=== PATIENT | female | born 1965 | race Caucasian/White ===

== ENCOUNTER 2017-04-12 18:10 | Inpatient (IN) ==
[2017-04-12] MEDS ORDERED: PHENYLEPHRINE DRIP 40 MG/250 ML PREMIX IV ONE (18:30)
[2017-04-12] MEDS ORDERED: PANTOPRAZOLE INJ 80 MG in SODIUM CHLORIDE 0.9% 100 ML IV STA (18:32)
[2017-04-12] MEDS ORDERED: SODIUM CHLORIDE 0.9% 1,000 ML IV STA (18:32)
[2017-04-12] MEDS ORDERED: ONDANSETRON 4 MG/2 ML VIAL IV STA ×2 (18:32→20:21)
[2017-04-12] MEDS: PHENYLEPHRINE DRIP 40 MG/250 ML PREMIX IV SCH (18:50)
--- NOTE | 2017-04-12 18:55 | Emergency Department Note ---
Yoko Snyder Brittany, am scribing for, and in the presence of, Jamarcus Michel MD 18:38. Anand Snyder Charles R, MD, personally performed the services described in this documentation, ascribed by Aby Babcock in my presence, and it is both accurate and complete 855 . Arrival - Arrival ED Nursing Triage Note: patient to room via ems with c/o upper and lower GI bleed. Patient states that she started throwing up blood and having diarrhea with blood in it on Tuesday. When ems arrived patient was blue around the lips. sweating, cool, and clamly. patients blood pressure is 56/35 on arrival. Mode of Arrival: Stretcher Limitations: No Limitations Source: Patient, Family - History of Present Illness Onset (ago): day(s) (Started 4 days ago) Consistency: intermittent Severity: moderate <Jamarcus Michel - Last Filed: 04/12/17 18:55> <Yovani Carrizales - Last Filed: 04/12/17 20:59> - Arrival Chief Complaint: GI Bleed/Rectal - History of Present Illness HPI Narrative: This is a 52 y/o white female, who presents to the ED by EMS for further evaluation of an upper and lower GI bleed which has been on and off for the past 5 days. She reports she has noticed the blood has been bright red in color. She states she has started to vomit blood. Per EMS, when they arrived pt was blue around the lips, clam, diaphoretic, and cool to the touch. She denies any abdominal pain Her PCP is Dr. Tracy. Pt has no other complaints/pain in the ED at this time. Pt has a PMHx of HTN, COPD, and fibromyalgia. Pt denies a surgical Hx. PT denies a family medical Hx. Pt is a former smoker but denies the use of alcohol and street drugs. (Aby Babcock) This is a 52 y/o white female, who presents to the ED by EMS for further evaluation of an upper and lower GI bleed which has been on and off for the past 5 days. She reports she has noticed the blood has been bright red in color. She states she has started to vomit blood. Per EMS, when they arrived pt was blue around the lips, clam, diaphoretic, and cool to the touch. She denies any abdominal pain Her PCP is Dr. Tracy. Pt has no other complaints/pain in the ED at this time. Pt has a PMHx of HTN, COPD, and fibromyalgia. Pt denies a surgical Hx. PT denies a family medical Hx. Pt is a former smoker but denies the use of alcohol and street drugs. (Jamarcus Michel) Allergies/Adverse Reactions: Allergies Allergy/AdvReac Type Severity Reaction Status Date / Time Penicillins Allergy Unknown/Unable Verified 04/12/17 18:25 to obtain Home Medications: Home Medications Medication Instructions Recorded Confirmed Type Aspirin 325 mg PO QAM 12/13/16 04/12/17 History Cilostazol 100 mg PO BID 12/13/16 04/12/17 History Clorazepate [Tranxene] 3.75 mg PO BID 12/13/16 04/12/17 History Furosemide Tab [Lasix Tab] 20 mg PO QAM 12/13/16 04/12/17 History Levomilnacipran HCl [Fetzima] 40 mg PO QAM 12/13/16 04/12/17 History Lisinopril 40 mg PO QAM 12/13/16 04/12/17 History Metoprolol Tartrate Tab [Lopressor 50 mg PO BID 12/13/16 04/12/17 History Tab] Pitavastatin Calcium [Livalo] 4 mg PO QPM 12/13/16 04/12/17 History Sertraline HCl 25 mg PO QAM 12/13/16 04/12/17 History Tiotropium Inhalation [Spiriva 18 mcg INH QAM 12/13/16 04/12/17 History Handihaler] traMADol TAB [Ultram] 50 mg PO BID PRN 12/13/16 04/12/17 History levETIRAcetam [Levetiracetam] 500 mg PO BID 04/12/17 04/12/17 History Review of System - Review of System 12 point system: reviewed and no additional remarkable complaints except as stated - Review of System Constitutional: Present: weakness (Generalized weak) Gastrointestinal: Present: hematemesis, hematochezia. Absent: abdominal pain <Jamarcus Michel - Last Filed: 04/12/17 18:55> Medical,Surgical,& Family Hx - Medical History Cardio: History of: Hypertension Respiratory: History of: COPD Other: History of: Miscellaneous Medical Problems (fibromyalgia) - Social History Smoking Status: Former smoker Frequency of Alcohol Use: None Type of Drug Use: None <Jamarcus Michel - Last Filed: 04/12/17 18:55> Exam - General General appearance: alert, in distress, other (Appears "Shocky" looking) - Head Head exam: Present: atraumatic, normocephalic, normal inspection - Eye Eye exam: Present: normal appearance, PERRL, EOMI. Absent: nystagmus - ENT ENT exam: Present: normal exam, mucous membranes moist - Neck Neck exam: Present: normal inspection, full ROM, trachea midline. Absent: tenderness - Chest Chest inspection: Present: normal inspection, symmetric chest wall rise. Absent : tenderness - Respiratory Respiratory exam: Present: normal lung sounds bilaterally. Absent: rales, respiratory distress, rhonchi, stridor, wheezes - Cardiovascular Cardiovascular exam: Present: normal rhythm, tachycardia, normal heart sounds. Absent: murmur, rubs, gallop, clicks, JVD - Abdominal Exam Abdominal exam: Present: soft, diminished bowel sounds. Absent: distention, tenderness, guarding, rebound, rigidity - Rectal Exam Rectal exam: Present: heme (+) stool, bloody stool - Extremities Exam Extremities exam: Present: normal capillary refill, pedal edema (Pitting edema to the BLE), other (Poor pulses noted to the RLE) - Back Exam Back exam: Present: normal inspection, full ROM. Absent: tenderness, muscle spasm, rashes - Neurological Exam Neurological exam: Present: alert, oriented X3, CN II-XII intact. Absent: motor sensory deficit - Psychiatric Psychiatric exam: Present: normal affect, normal mood. Absent: depressed, agitated, anxious, flat affect, manic - Skin Skin exam: Present: warm, dry, intact, pallor <Jamarcus Michel - Last Filed: 04/12/17 18:55> <Yovani Carrizales - Last Filed: 04/12/17 20:59> Vital Signs: Vital Signs Temperature 98.7 F 04/12/17 18:19 Pulse Rate 116 H 04/12/17 18:19 Respiratory Rate 14 04/12/17 18:19 Blood Pressure 56/35 04/12/17 18:19 O2 Sat by Pulse Oximetry 89 L 04/12/17 18:19 - Other Other exam information: Low BP Weakness (Aby Babcock) Low BP Weakness (Jamarcus Michel) Course - Consultations Time: 18:54 <Jamarcus Michel - Last Filed: 04/12/17 18:55> <Yovani Carrizales - Last Filed: 04/12/17 20:59> Course Narrative: pt became increasingly hypotensive despite fluids and pressors pt given one unit of emergency released PRBCs. just prior to administration pt became bradycardic without symptoms started blood and pt improved. pt admitted for fluids blood transfusion and further care of conditions (Yovani Carrizales) - Consultations Consultation #1: Signed out to Dr. Carrizales ER doctor assuming care of this patient all labs are pending (Jamarcsu Michel) Procedures - Central Line Placement Right Femoral Consent Obtained: verbal consent Time Out Performed: Yes Patient Placed on Monitor/Pulse Ox: Yes MD Prep: mask, gown, gloves Central Line Prep: Chlorhexidine scrub Local Anesthetic: lidocaine 1% Amount of anesthesia used (mL): 5 Central Line Lumen Inserted: triple Post Procedure: sutured in place, good blood return, all ports aspirated, flushed, capped, sterile dressing applied Patient Tolerated Procedure: well, no complications Complications: none <Jamarcus Michel - Last Filed: 04/12/17 18:55> Results - Labs CBC & BMP: 04/12/17 19:52 04/12/17 19:52 Lab Results: I have reviewed the patients labs - Diagnostic Findings Procedure: Chest x-ray: image reviewed by me (no acute), X-ray: image reviewed by me (ileus no obstruction) <Yovani Carrizales - Last Filed: 04/12/17 20:59> Critical Care Time Critical Care Time: Yes Total Critical Care Time: 60 <Jamarcus Michel - Last Filed: 04/12/17 18:55> Disposition Case discussed with: patient, patient's family <Jamarcus Michel - Last Filed: 04/12/17 18:55> Case discussed with: patient, patient's family <Yovani Carrizales - Last Filed: 04/12/17 20:59> Clinical Impression: Lower gastrointestinal hemorrhage, PVD (peripheral vascular disease), COPD ( chronic obstructive pulmonary disease), Acute blood loss anemia, Hypovolemic shock, Acute renal failure Disposition: Still a Patient
[2017-04-12] MEDS ORDERED: NOREPINEPHRINE 4 MG/4 ML VIAL IV ONE (19:23)
[2017-04-12] MEDS: NOREPINEPHRINE 8 MG in SODIUM CHLORIDE 0.9% 242 ML IV SCH ×2 (19:31→21:52)
[2017-04-12] MEDS ORDERED: SODIUM CHLORIDE 0.9% 250 ML IV PRN (19:40)
[2017-04-12 19:56] LABS: Basophils % 0.1 % (0.0-0.8); Hematocrit 23.4 VOL% (35.7-47.0); Hemoglobin 8.2 GM/DL (12.0-16.0); Immature Granulocytes % 0.3 %; Immature Granulocytes Absolute 0.02 #; Lymphocytes # 0.8 10*3/uL (1.4-4.0); Lymphocytes % 11.9 % (21.3-54.2); Mean Corpuscular Hemoglobin 32 PG (27-34); Mean Corpuscular Volume 91.1 FL (87-102); Mean Platelet Volume 11.8 FL (9.6-12.0); Monocytes # 1.1 10*3/uL (0.11-0.8); Monocytes % 15.5 % (1.7-12.7); NRBC # 0.02 10*3/uL; Neutrophils # 5.1 10*3/uL (1.4-7.4); Neutrophils % 72.2 % (38.7-73.9); Platelet Count 211 T/CUMM (130-400); Red Blood Count 2.57 MC/CUMM (3.8-5.5); Red Cell Distribution Width 14.2 % (9.3-17.3); White Blood Count 7.1 T/CUMM (4-12)
--- NOTE | 2017-04-12 20:03 | XRay Report ---
XR chest 1V portable Indication: Shortness of breath. Chest one view: Comparison 12/13/2016. The heart size and mediastinal contour are normal. The lungs and pleural spaces are clear. Bones are unremarkable. Impression: Negative chest. PROCEDURE INTERPRETED AT [facility] DEPARTMENT OF RADIOLOG[facility] Final Report Signed by: Remy Andersen M.D.
--- NOTE | 2017-04-12 20:03 | XRay Report ---
XR abdomen complete w decub Indication: Abdominal pain. Abdomen 2 views: Right groin central line is present. Scattered air-fluid levels are noted without small bowel dilatation. No free air. Stool and gas is seen in the colon. Impression: Gastroenteritis or ileus. No obstruction. PROCEDURE INTERPRETED AT [facility] DEPARTMENT OF RADIOLOGY Final Report Signed by: Remy Andersen M.D.
[2017-04-12 20:13] LABS: INR 1.2
[2017-04-12 20:20] LABS: Alanine Aminotransferase < 9 U/L (13-56); Albumin 1.8 G/DL (3.4-5.0); Alkaline Phosphatase 55 U/L (45-117); Aspartate Amino Transferase 8 U/L (0-37); Bilirubin,Total < 0.39 MG/DL (0.2-1.0); Blood Urea Nitrogen 58 MG/DL (7-18); Calcium 6.4 MG/DL (8.5-10.1); Glucose 94 MG/DL (74-106); Magnesium 1.7 MG/DL (1.8-2.4); Osmolality,Calculated 294.4 MOS/KG (273-304); Potassium 3.1 MMOL/L (3.5-5.1); Sodium 140 MMOL/L (136-145); Total Protein 3.9 G/DL (6.4-8.3); Troponin I Only < 0.015 NG/ML (0.00-0.045)
[2017-04-12] MEDS ORDERED: ONDANSETRON 4 MG/2 ML VIAL ONE (20:21)
[2017-04-12 21:10] LABS: Ammonia < 10 UMOL/L (11-32)
[2017-04-12] MEDS ORDERED: ONDANSETRON 4 MG/2 ML VIAL IV PRN (21:51)
[2017-04-12] MEDS ORDERED: traZODone 50 MG TABLET PO PRN (21:51)
[2017-04-12] MEDS ORDERED: ACETAMINOPHEN 325 MG TABLET PO PRN (21:51)
[2017-04-12] MEDS ORDERED: ALBUTEROL 2.5 MG/3 ML NEB RESP TX PRN (21:51)
[2017-04-12] MEDS ORDERED: SODIUM CHLORIDE 0.9% 1,000 ML IV SCH (22:00)
[2017-04-12] MEDS ORDERED: traMADol 50 MG TABLET PO PRN (22:15)
--- NOTE | 2017-04-12 22:31 | Hospitalist History & Physical ---
Assessment and Plan (1) GI bleed Status: Acute Assessment and plan: - ICU - hemoglobin on 12/13 was 15.2 but now 8.2 - Transfuse pRBC's as needed - requiring 2 pressors at this time - IV Protonix infusion - IV Carafate - Clear liquid diet - Stool studies ordered - Consult GI - will monitor Current Visit: Yes (2) Acute renal failure Status: Acute Assessment and plan: - Likely due to ATN, hypotension and hypovolemia - IVF - pressors - Consult nephrology - Will monitor Current Visit: Yes (3) Hypovolemic shock Status: Acute Assessment and plan: - holding BP meds - on Pressors - IVF - will monitor Current Visit: Yes (4) Hypokalemia Status: Acute Assessment and plan: - replacement in IV fluids - will monitor Current Visit: Yes (5) Hypomagnesemia Status: Acute Assessment and plan: - oral replacement - will monitor Current Visit: Yes (6) Acute posthemorrhagic anemia Status: Acute Assessment and plan: - Patient given 1 unit of emergent prbc's - Transfuse PRBC's as needed - will monitor Current Visit: Yes History of Present Illness Chief complaint: gi bleed History of present illness: Ms. Mendoza is a 52 year old female with a history of hypertension, obstructive sleep apnea (untreated), peripheral artery disease, CVA, and COPD that presented to the ER with GI bleed for 4-5 days. Patient reports having flu- like symptoms with body aches and subjective fever. She also reports having nausea and vomiting, diarrhea, abdominal pain. Patient reports vomitus is blood in stools are dark and bright red at times. Abdominal pain described as diffuse, crampy and severe. Patient reports shortness of breat but denies any other symptoms. Patient reports the only sick contact has been a daughter and she has flulike symptoms with nausea, vomiting, and diarrhea as well. Patient reports she not come to the doctor sooner because she thought she would get well. When EMS arrived to pick patient up she was found to be cool, clammy, and blue around the lips. In the ER, patient was found to have severe hypotension and she was also Hemoccult positive. Patient was given emergent packed red blood cells in the ER and was placed on 2 pressors. Patient will be admitted to the ICU in the care of the hospitalist service. Of note, Dr. Tracy is her PCP. Patient has an endovascular procedures scheduled for her PAD by Dr. Diehl on 04/18/2017. Home Medications Medication Instructions Recorded Confirmed Type Aspirin 325 mg PO QAM 12/13/16 04/12/17 History Cilostazol 100 mg PO BID 12/13/16 04/12/17 History Clorazepate [Tranxene] 3.75 mg PO BID 12/13/16 04/12/17 History Furosemide Tab [Lasix Tab] 20 mg PO QAM 12/13/16 04/12/17 History Levomilnacipran HCl [Fetzima] 40 mg PO QAM 12/13/16 04/12/17 History Lisinopril 40 mg PO QAM 12/13/16 04/12/17 History Metoprolol Tartrate Tab [Lopressor 50 mg PO BID 12/13/16 04/12/17 History Tab] Pitavastatin Calcium [Livalo] 4 mg PO QPM 12/13/16 04/12/17 History Sertraline HCl 25 mg PO QAM 12/13/16 04/12/17 History Tiotropium Inhalation [Spiriva 18 mcg INH QAM 12/13/16 04/12/17 History Handihaler] traMADol TAB [Ultram] 50 mg PO BID PRN 12/13/16 04/12/17 History levETIRAcetam [Levetiracetam] 500 mg PO BID 04/12/17 04/12/17 History Allergies Allergy/AdvReac Type Severity Reaction Status Date / Time Penicillins Allergy Unknown/Unable Verified 04/12/17 18:25 to obtain Medical,Surgical,& Family Hx - Medical History Cardio: History of: Hypertension Psychological: History of: Depression Neurology: History of: Brain Aneurysm (found in november 2016), Cerebrovascular Accident (november 2016) Rheumatology: History of;: Fibromyalgia Respiratory: History of: COPD Other: History of: Miscellaneous Medical Problems (fibromyalgia) - Surgical History Cardiac Surgeries: Sugical HX of: Cardiac Catheterization Neurologic Surgeries: Surgical HX of: Brain Aneurysm (found in november 2016) Patient denies: Neurologic Surgery Reproductive Surgeries: Surgical HX of;: Gynecologic Surgery, Hysterectomy - Social History Smoking Status: Former smoker Frequency of Alcohol Use: None Type of Drug Use: None Review of systems: 12 point review of systems is negative unless stated in the HPI Exam - Constitutional Vitals: Period Temp Pulse Resp BP Sys/Katz Pulse Ox Last 24 Hr 97.9 F-98.7 F 99-116 14-20 56-98/35-82 89-95 General appearance: morbidly obese - Head Head exam: Present: normal inspection - Eye Eye exam: Present: EOMI - ENT ENT exam: Present: other (dry mucous membranes) - Respiratory Respiratory exam: Present: clear to auscultation bilaterally - Cardiovascular Cardiovascular exam: Present: regular rate and rhythm, systolic murmur - GI/Abdominal GI/Abdominal exam: Present: hypoactive bowel sounds, tenderness (epigastric). Absent: distended - Extremities Exam Extremities exam: Present: normal inspection, other (decreased peripheral pulses ). Absent: edema - Neurological Exam Neurological exam: Present: alert, oriented X3 - Psychiatric Psychiatric exam: Present: normal affect - Skin Skin exam: Present: normal color, warm, dry Results - Labs CBC & BMP: 04/12/17 19:52 04/12/17 19:52 Quality Measures - VTE Contraindication to Pharmacological VTE Prophylaxis: Active Bleeding
[2017-04-12] MEDS: levETIRAcetam 500 MG TABLET PO SCH (22:35)
[2017-04-12 22:42] LABS: Basophils % 0.5 % (0.0-0.8); Hematocrit 33.3 VOL% (35.7-47.0); Hemoglobin 11.6 GM/DL (12.0-16.0); Immature Granulocytes % 0.5 %; Immature Granulocytes Absolute 0.04 #; Lymphocytes # 0.9 10*3/uL (1.4-4.0); Mean Corpuscular HGB Conc 34.8 GM/DL (32-36); Mean Corpuscular Hemoglobin 31 PG (27-34); Mean Corpuscular Volume 89.5 FL (87-102); Monocytes # 0.9 10*3/uL (0.11-0.8); NRBC # 0.02 10*3/uL; Neutrophils # 6.6 10*3/uL (1.4-7.4); Platelet Count 234 T/CUMM (130-400); Red Blood Count 3.72 MC/CUMM (3.8-5.5); Red Cell Distribution Width 14.7 % (9.3-17.3); White Blood Count 8.6 T/CUMM (4-12)
[2017-04-12] MEDS ORDERED: PANTOPRAZOLE INJ 200 MG in SODIUM CHLORIDE 0.9% 250 ML IV SCH (23:00)
[2017-04-12] MEDS: SODIUM CHLOR 0.9% KCL 40 MEQ 40 MEQ/1,000 ML BAG IV SCH (23:05)
[2017-04-12] MEDS: MAGNESIUM OXIDE 400 MG TABLET PO SCH (23:05)
[2017-04-12 23:59] LABS: Hepatitis A Ab IgM Quant 0.06 Index; Hepatitis A Ab IgM Result Negative (Negative); Hepatitis B Core IgM Quant 0.13 Index; Hepatitis B Core IgM Result Negative (Negative); Hepatitis B Surface Ag Quant 0.31 Index; Hepatitis B Surface Ag Result Negative (Negative); Hepatitis C Virus Ab Quant 0.02 Index; Hepatitis C Virus Ab Result Negative (Negative)
[2017-04-13] MEDS: PHENYLEPHRINE DRIP 40 MG/250 ML PREMIX IV SCH ×9 (02:37→20:24)
[2017-04-13 04:36] LABS: Basophils % 0.3 % (0.0-0.8); Hematocrit 35.2 VOL% (35.7-47.0); Immature Granulocytes % 0.6 %; Immature Granulocytes Absolute 0.06 #; Lymphocytes # 2.2 10*3/uL (1.4-4.0); Lymphocytes % 20.4 % (21.3-54.2); Mean Corpuscular HGB Conc 34.1 GM/DL (32-36); Mean Corpuscular Hemoglobin 31 PG (27-34); Mean Corpuscular Volume 90.5 FL (87-102); Mean Platelet Volume 11.8 FL (9.6-12.0); Monocytes # 1.5 10*3/uL (0.11-0.8); Monocytes % 13.8 % (1.7-12.7); NRBC # 0.05 10*3/uL; Neutrophils # 6.9 10*3/uL (1.4-7.4); Neutrophils % 64.9 % (38.7-73.9); Platelet Count 301 T/CUMM (130-400); Red Blood Count 3.89 MC/CUMM (3.8-5.5); Red Cell Distribution Width 15.7 % (9.3-17.3); White Blood Count 10.6 T/CUMM (4-12)
[2017-04-13 05:09] LABS: Band Neutrophils 8 % (0-10); Burr Cells Slight; Giant Platelets Few; Hypochromasia Slight; Lymphocytes 25 % (20-55); Ovalocytes Slight; Platelet Estimate Adequate; Segmented Neutrophils 50 % (50-85); Total Cells Counted 100
[2017-04-13 05:10] LABS: Albumin 2.3 G/DL (3.4-5.0); Bilirubin,Total 0.9 MG/DL (0.2-1.0); Calcium 7.8 MG/DL (8.5-10.1); Magnesium 2.2 MG/DL (1.8-2.4); Osmolality,Calculated 292.8 MOS/KG (273-304); Potassium 4.6 MMOL/L (3.5-5.1); Total Protein 5.1 G/DL (6.4-8.3)
[2017-04-13] MEDS: SODIUM CHLOR 0.9% KCL 40 MEQ 40 MEQ/1,000 ML BAG IV SCH (05:35)
--- NOTE | 2017-04-13 08:11 | EKG Report ---
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
[2017-04-13] MEDS ORDERED: SODIUM CHLORIDE 0.9% 1,000 ML IV ONE (08:59)
[2017-04-13] MEDS: SERTRALINE 25 MG TABLET PO SCH (09:10)
[2017-04-13] MEDS: CLORAZEPATE 7.5 MG TABLET PO SCH ×2 (09:11→20:21)
[2017-04-13] MEDS: MAGNESIUM OXIDE 400 MG TABLET PO SCH (09:11)
[2017-04-13] MEDS: levETIRAcetam 500 MG TABLET PO SCH ×2 (09:12→20:21)
[2017-04-13] MEDS: SUCRALFATE 1 GM/10 ML UDCUP PO SCH ×4 (09:12→20:21)
[2017-04-13] MEDS: SODIUM BICARB INJ 100 MEQ in DEXTROSE 5% 1,000 ML IV SCH ×2 (10:13→17:29)
[2017-04-13] MEDS: metroNIDAZOLE INJ 500 MG in PREMIX 1 EACH IV SCH ×2 (10:17→17:23)
--- NOTE | 2017-04-13 11:20 | Hospitalist Progress Note ---
Hospitalist: Subjective Interval history: Mrs Mendoza presented last night after 4-5 days of vomiting, bloody diarrhea no hematemesis. She had outpatient arteriogram last week. No history of renal failure. She reports abdominal pain, but no more diarrhea. KUB showed ileus v gastroenteritis. A/P: 1)acute new renal failure- probably due to IV dye used at arteriogram and her ACEI use. Hold MARYAN, hydrate, renal to see. Change IVF to D5W with bicarb after bolus. 2)shock- initially it seemed hypovolemic, but now she has been rehydrated and remains tachycardic and hypotensive. Get Bcx, Ucx, stool cultures. Begin levaquin and flagyl- may have diverticulitis on exam and this would fit with pain, fever, and bloody diarrhea. check lactic acid. Repeat 1L NS bolus. 3)PVD- I let Dr Gonzales know she is here. 4)possible diverticulitis/bloody diarrhea- it would be nice to have CT abdomen but Imp not sure how helpful it would be without contrast. GI to see. 5)hypokalemia and hypomagnesemia- replaced. Exam - Constitutional Vitals: Period Temp Pulse Resp BP Sys/Katz Pulse Ox Last 24 Hr 96.9 F-98.7 F 75-116 12-30 56-118/32-82 89-100 General appearance: no acute distress, over weight - Eye Eye exam: Present: EOMI. Absent: scleral icterus - Respiratory Respiratory exam: Present: clear to auscultation bilaterally - Cardiovascular Cardiovascular exam: Present: regular rate and rhythm - GI/Abdominal GI/Abdominal exam: Present: normal bowel sounds, tenderness (more tender in LLQ no rebound, or guarding), soft - Extremities Exam Extremities exam: Absent: edema - Neurological Exam Neurological exam: Present: alert, oriented X3 - Psychiatric Psychiatric exam: Present: normal mood. Absent: normal affect (sleeps with eyes open) - Skin Skin exam: Present: warm, dry Results - Labs CBC & BMP: 04/13/17 03:43 04/13/17 03:43 Lab Results: I have reviewed the past 24 hour labs Quality Measures - VTE Contraindication to Pharmacological VTE Prophylaxis: Active Bleeding
--- NOTE | 2017-04-13 11:25 | Vascular Surgery Consult Note ---
History of Present Illness Chief complaint: GI Hemorrhage History of present illness: Ms. 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 There is also been found a small 3 mm cranial aneurysm and she has seen her neurosurgeon recently and does not feel that this would contraindicate treatment of her peripheral vascular disease. She has been scheduled for a right femoral-popliteal bypass next week but has now been admitted with acute GI hemorrhage hypotension and acute renal failure. Her CT angiogram was 8 1 and I would be surprised if it in fact cause the acute renal failure. At this point I will see her while here in the hospital but would anticipate we will delay surgery until this illness has fully resolved Home Medications Medication Instructions Recorded Confirmed Type Aspirin 325 mg PO QAM 12/13/16 04/12/17 History Cilostazol 100 mg PO BID 12/13/16 04/12/17 History Clorazepate [Tranxene] 3.75 mg PO BID 12/13/16 04/12/17 History Furosemide Tab [Lasix Tab] 20 mg PO QAM 12/13/16 04/12/17 History Levomilnacipran HCl [Fetzima] 40 mg PO QAM 12/13/16 04/12/17 History Lisinopril 40 mg PO QAM 12/13/16 04/12/17 History Metoprolol Tartrate Tab [Lopressor 50 mg PO BID 12/13/16 04/12/17 History Tab] Pitavastatin Calcium [Livalo] 4 mg PO QPM 12/13/16 04/12/17 History Sertraline HCl 25 mg PO QAM 12/13/16 04/12/17 History Tiotropium Inhalation [Spiriva 18 mcg INH QAM 12/13/16 04/12/17 History Handihaler] traMADol TAB [Ultram] 50 mg PO BID PRN 12/13/16 04/12/17 History levETIRAcetam [Levetiracetam] 500 mg PO BID 04/12/17 04/12/17 History Allergies Allergy/AdvReac Type Severity Reaction Status Date / Time Penicillins Allergy Unknown/Unable Verified 04/12/17 18:25 to obtain Medical,Surgical,& Family Hx - Medical History Cardio: History of: Hypertension Psychological: History of: Depression Neurology: History of: Brain Aneurysm (found in november 2016), Cerebrovascular Accident (november 2016) Rheumatology: History of;: Fibromyalgia Respiratory: History of: COPD Other: History of: Miscellaneous Medical Problems (fibromyalgia) - Surgical History Cardiac Surgeries: Sugical HX of: Cardiac Catheterization Neurologic Surgeries: Surgical HX of: Brain Aneurysm (found in november 2016) Patient denies: Neurologic Surgery Reproductive Surgeries: Surgical HX of;: Gynecologic Surgery, Hysterectomy - Social History Smoking Status: Former smoker Frequency of Alcohol Use: None Type of Drug Use: None Exam - Constitutional Vitals: Period Temp Pulse Resp BP Sys/Katz Pulse Ox Last 24 Hr 96.9 F-98.7 F 75-116 12-30 56-118/32-82 89-100 Quality Measures - VTE Contraindication to Pharmacological VTE Prophylaxis: Active Bleeding Results - Labs CBC & BMP: 04/13/17 03:43 04/13/17 03:43
--- NOTE | 2017-04-13 11:27 | Gastrointestinal Consult Note ---
Assessment and Plan (1) GI bleed Status: Acute Assessment and plan: 04/13-onset of rectal bleeding with diarrhea stools times several days with lower abdominal cramping. On Pletal and aspirin therapy. Has been transfused 2 units packed red blood cells. Unable to locate endoscopy records. Monitor H& H. Clear liquid diet. Plan an addendum to followed by Dr. Andrade. Current Visit: Yes History of Present Illness Chief complaint: Rectal bleed History of present illness: Ms. Mendoza is a 52 year old female who was admitted to the hospital last night with reports of SOB and rectal bleeding. Patient has a prior history of hypertension, PAD, CVA and COPD. Pt states that she was in her usual state of health until approximately 5 days ago when she had a sudden onset of nausea, vomiting and diarrhea. She states that she had multiple diarrhea stools from the beginning as well as multiple episodes of nausea and vomiting. She also reports some lower abdominal pain and cramping that preceded defecation however was relieved with the bowel movement. She denies any coffee ground or hemetemesis with the vomiting episodes. She states that approximately two days ago she began to notice some bright red blood in her diarrhea stools. She states that this was mixed in with dark red clots at times. Patient states that she has never had a GI bleed like this before. She had had an increase in shortness of breath at its well and decided to come to the emergency room yesterday for further evaluation. Patient did state that she has been in contact with her daughter who has recently had flulike symptoms with similar presentation of nausea vomiting diarrhea. She denies any fever or chills. Upon arrival to the emergency room, patient was found to be hypotensive and was placed on pressure support as well as transfused at that time. She was initially found to have an H&H of 04/13 however following 2 units of packed red blood cells her counts improved to . She was also placed on ynes-as well as Levophed infusions which are continuing today. Patient denies taking any NSAIDs or however noted to be taking Pletal as well as a daily aspirin. She denies any recent weight loss, increased GERD, dyspepsia, or dysphagia. She has had endoscopy in the past but cannot recall the findings. Dr. Gonzales has consulted with patient regarding a previously scheduled right fem-pop bypass next week however this is noted to be postponed at this time. There is also mention of a small cranial aneurysm which was found following a CVA in November of this year in which patient is followed by a neurosurgeon for. She is followed routinely by Dr. Levin is her PCP. Patient states that she has had endoscopy done at our facility in the past, which she states was greater than 10 years ago , however unable to locate these files at this time.. Home Medications Medication Instructions Recorded Confirmed Type Aspirin 325 mg PO QAM 12/13/16 04/12/17 History Cilostazol 100 mg PO BID 12/13/16 04/12/17 History Clorazepate [Tranxene] 3.75 mg PO BID 12/13/16 04/12/17 History Furosemide Tab [Lasix Tab] 20 mg PO QAM 12/13/16 04/12/17 History Levomilnacipran HCl [Fetzima] 40 mg PO QAM 12/13/16 04/12/17 History Lisinopril 40 mg PO QAM 12/13/16 04/12/17 History Metoprolol Tartrate Tab [Lopressor 50 mg PO BID 12/13/16 04/12/17 History Tab] Pitavastatin Calcium [Livalo] 4 mg PO QPM 12/13/16 04/12/17 History Sertraline HCl 25 mg PO QAM 12/13/16 04/12/17 History Tiotropium Inhalation [Spiriva 18 mcg INH QAM 12/13/16 04/12/17 History Handihaler] traMADol TAB [Ultram] 50 mg PO BID PRN 12/13/16 04/12/17 History levETIRAcetam [Levetiracetam] 500 mg PO BID 04/12/17 04/12/17 History Allergies Allergy/AdvReac Type Severity Reaction Status Date / Time Penicillins Allergy Unknown/Unable Verified 04/12/17 18:25 to obtain Medical,Surgical,& Family Hx - Medical History Cardio: History of: Hypertension Psychological: History of: Depression Neurology: History of: Brain Aneurysm (found in november 2016), Cerebrovascular Accident (november 2016) Rheumatology: History of;: Fibromyalgia Respiratory: History of: COPD Other: History of: Miscellaneous Medical Problems (fibromyalgia) - Surgical History Cardiac Surgeries: Sugical HX of: Cardiac Catheterization Neurologic Surgeries: Surgical HX of: Brain Aneurysm (found in november 2016) Patient denies: Neurologic Surgery Reproductive Surgeries: Surgical HX of;: Gynecologic Surgery, Hysterectomy - Social History Smoking Status: Former smoker Frequency of Alcohol Use: None Type of Drug Use: None 12 point system: reviewed and no additional remarkable complaints except as stated - Constitutional Constitutional: Present: as per HPI - EENT Eyes: Present: as per HPI Ears: Present: as per HPI Nose, mouth and throat: Present: as per HPI - Cardiovascular Cardiovascular: Present: as per HPI - Respiratory Respiratory: Present: as per HPI - Gastrointestinal Gastrointestinal: Present: as per HPI, abdominal pain, diarrhea, hematochezia, nausea, vomiting - Genitourinary Genitourinary: Present: as per HPI - Musculoskeletal Musculoskeletal: Present: as per HPI - Neurological Neurological: Present: as per HPI - Psychiatric Psychiatric: Present: as per HPI - Endocrine Endocrine: Present: as per HPI - Hematologic/Lymphatic Hematologic/Lymphatic: Present: as per HPI Exam - Constitutional Vitals: Period Temp Pulse Resp BP Sys/Katz Pulse Ox Last 24 Hr 96.9 F-98.7 F 75-116 12-30 56-118/32-82 89-100 General appearance: normal weight, no acute distress - Head Head exam: Present: normal inspection, normocephalic - Eye Eye exam: Present: other (lids and conjunctiva unremarkable). Absent: scleral icterus - ENT ENT exam: Present: normal exam, normal oropharynx - Neck Neck exam: Present: normal inspection - Respiratory Respiratory exam: Present: clear to auscultation bilaterally. Absent: rales, rhonchi, wheezes - Cardiovascular Cardiovascular exam: Present: regular rate and rhythm. Absent: diastolic murmur , JVD, systolic murmur - GI/Abdominal GI/Abdominal exam: Present: normal bowel sounds, soft. Absent: ascites, distended, mass, organomegaly, tenderness - Extremities Exam Extremities exam: Present: normal inspection, full ROM - Back Exam Back exam: Present: normal inspection - Neurological Exam Neurological exam: Present: alert, oriented X3 - Psychiatric Psychiatric exam: Present: normal affect, normal mood - Skin Skin exam: Present: normal color, warm, dry Results - Labs CBC & BMP: 04/13/17 03:43 04/13/17 03:43 Lab Results: I have reviewed the past 24 hour labs Quality Measures - VTE Contraindication to Pharmacological VTE Prophylaxis: Active Bleeding
[2017-04-13] MEDS: LEVOFLOXACIN INJ 250 MG in PREMIX 1 EACH IV SCH (11:50)
--- NOTE | 2017-04-13 15:38 | Nephrology Consult Note ---
History of Present Illness Chief complaint: Acute renal failure History of present illness: Ms. Mendoza is a 52 year old female with a history of CVA, hypertension and COPD, fibromyalgia and anemia presented with a GI bleed. Serum creatinine is trended up to 8.2. The patient has been voiding. Nephrology is been consulted for renal issues. During the workup patient did get exposure to contrast dye for her GI bleed. At present she has been hypotensive and has been on multiple pressor medications. No shortness of breath she does states she aches a lot in her stomach. No fevers or chills. His hematocrit is stable at 35.2. Home Medications Medication Instructions Recorded Confirmed Type Aspirin 325 mg PO QAM 12/13/16 04/12/17 History Cilostazol 100 mg PO BID 12/13/16 04/12/17 History Clorazepate [Tranxene] 3.75 mg PO BID 12/13/16 04/12/17 History Furosemide Tab [Lasix Tab] 20 mg PO QAM 12/13/16 04/12/17 History Levomilnacipran HCl [Fetzima] 40 mg PO QAM 12/13/16 04/12/17 History Lisinopril 40 mg PO QAM 12/13/16 04/12/17 History Metoprolol Tartrate Tab [Lopressor 50 mg PO BID 12/13/16 04/12/17 History Tab] Pitavastatin Calcium [Livalo] 4 mg PO QPM 12/13/16 04/12/17 History Sertraline HCl 25 mg PO QAM 12/13/16 04/12/17 History Tiotropium Inhalation [Spiriva 18 mcg INH QAM 12/13/16 04/12/17 History Handihaler] traMADol TAB [Ultram] 50 mg PO BID PRN 12/13/16 04/12/17 History levETIRAcetam [Levetiracetam] 500 mg PO BID 04/12/17 04/12/17 History Allergies Allergy/AdvReac Type Severity Reaction Status Date / Time Penicillins Allergy Unknown/Unable Verified 04/12/17 18:25 to obtain Medical,Surgical,& Family Hx - Medical History Cardio: History of: Hypertension Psychological: History of: Depression Neurology: History of: Brain Aneurysm (found in november 2016), Cerebrovascular Accident (november 2016) Rheumatology: History of;: Fibromyalgia Respiratory: History of: COPD Other: History of: Miscellaneous Medical Problems (fibromyalgia) - Surgical History Cardiac Surgeries: Sugical HX of: Cardiac Catheterization Neurologic Surgeries: Surgical HX of: Brain Aneurysm (found in november 2016) Patient denies: Neurologic Surgery Reproductive Surgeries: Surgical HX of;: Gynecologic Surgery, Hysterectomy - Social History Smoking Status: Former smoker Frequency of Alcohol Use: None Type of Drug Use: None Exam - Vital Signs Vital signs: Period Temp Pulse Resp BP Sys/Katz Pulse Ox Last 24 Hr 96.9 F-98.7 F 74-122 12-30 56-123/32-82 89-100 - General Appearance General appearance: well-developed, well-nourished EENT: ATNC Neck: supple Respiratory: clear Cardiology: regular rate, regular rhythm Gastrointestinal: normoactive bowel sounds, no tenderness Integumentary: no rash Neurologic: alert and oriented x3, CN 3-12 intact Musculoskeletal: no clubbing Psychiatric: mood/affect appropriate Results - Labs CBC & BMP: 04/13/17 03:43 04/13/17 03:43 Assessment and Plan (1) Acute renal failure Status: Acute Assessment and plan: More likely ATN due to hypotension. Moreover patient has had exposure to contrast. Continue with IV fluids. Daily BMP. Current Visit: Yes Qualifiers: Acute renal failure type: with acute tubular necrosis Qualified Code(s): N17.0 - Acute kidney failure with tubular necrosis (2) Lower gastrointestinal hemorrhage Status: Acute Assessment and plan: Hemodynamics are noted. Currently patient is on pressor medications. Current Visit: Yes (3) Peripheral vascular disease Status: Chronic Current Visit: Yes (4) GI bleed Status: Acute Current Visit: Yes
[2017-04-13] MEDS: NOREPINEPHRINE 16 MG in SODIUM CHLORIDE 0.9% 234 ML IV SCH (20:23)
[2017-04-13] MEDS: PHENYLEPHRINE INJ 80 MG in SODIUM CHLORIDE 0.9% 242 ML IV SCH (21:40)
[2017-04-14] MEDS: SODIUM BICARB INJ 100 MEQ in DEXTROSE 5% 1,000 ML IV SCH ×2 (01:06→08:51)
[2017-04-14] MEDS: metroNIDAZOLE INJ 500 MG in PREMIX 1 EACH IV SCH ×3 (02:20→18:10)
[2017-04-14] MEDS: PHENYLEPHRINE INJ 80 MG in SODIUM CHLORIDE 0.9% 242 ML IV SCH ×4 (04:03→22:20)
[2017-04-14 04:44] LABS: Basophils % 0.4 % (0.0-0.8); Eosinophils % 0.1 % (0.00-10.9); Hematocrit 32.9 VOL% (35.7-47.0); Hemoglobin 11.2 GM/DL (12.0-16.0); Immature Granulocytes % 2.6 %; Immature Granulocytes Absolute 0.18 #; Lymphocytes # 1.2 10*3/uL (1.4-4.0); Lymphocytes % 17.1 % (21.3-54.2); Mean Corpuscular Hemoglobin 31 PG (27-34); Mean Corpuscular Volume 90.1 FL (87-102); Mean Platelet Volume 11.5 FL (9.6-12.0); Monocytes # 0.9 10*3/uL (0.11-0.8); Monocytes % 12.6 % (1.7-12.7); NRBC # 0.09 10*3/uL; Neutrophils # 4.6 10*3/uL (1.4-7.4); Neutrophils % 67.2 % (38.7-73.9); Platelet Count 258 T/CUMM (130-400); Red Blood Count 3.65 MC/CUMM (3.8-5.5); Red Cell Distribution Width 16.4 % (9.3-17.3); White Blood Count 6.9 T/CUMM (4-12)
[2017-04-14 05:03] LABS: Burr Cells Slight; Giant Platelets Few; Hypochromasia Slight; Ovalocytes Slight; Platelet Estimate Adequate
[2017-04-14 05:29] LABS: Albumin 1.9 G/DL (3.4-5.0); Bilirubin,Total 0.7 MG/DL (0.2-1.0); Calcium 6.5 MG/DL (8.5-10.1); Osmolality,Calculated 295.1 MOS/KG (273-304); Potassium 3.9 MMOL/L (3.5-5.1); Total Protein 4.6 G/DL (6.4-8.3)
[2017-04-14] MEDS: SUCRALFATE 1 GM/10 ML UDCUP PO SCH ×4 (06:30→21:04)
[2017-04-14] MEDS: PANTOPRAZOLE 40 MG VIAL IV SCH (08:51)
--- NOTE | 2017-04-14 08:51 | Event Note ---
Ms. Mendoza is doing better today blood counts stabilized vital signs are stable and his creatinine is down to 3.3. Again I am planning to consider the right femoral-popliteal bypass after this illness resolved which could easily be 1-2 months. Do note that she did not have any contrast during this admission her last contrast with CT angiogram of the aorta from March 22
[2017-04-14] MEDS: SERTRALINE 25 MG TABLET PO SCH (08:52)
[2017-04-14] MEDS: levETIRAcetam 500 MG TABLET PO SCH ×2 (08:53→21:04)
[2017-04-14] MEDS: CLORAZEPATE 7.5 MG TABLET PO SCH ×2 (08:53→21:04)
--- NOTE | 2017-04-14 10:39 | Gastrointestinal Progress Note ---
Assessment and Plan (1) GI bleed Status: Acute Assessment and plan: 04/14-no further reports of bleeding at this time. H&H is stable. Continue to monitor at present time. Continuing to require Hao-Synephrine. Plan an addendum to followed by Dr. Andrade. 04/13-onset of rectal bleeding with diarrhea stools times several days with lower abdominal cramping. On Pletal and aspirin therapy. Has been transfused 2 units packed red blood cells. Unable to locate endoscopy records. Monitor H& H. Clear liquid diet. Plan an addendum to followed by Dr. Andrade. Current Visit: Yes Gastroenterology - PN: Subj Interval history: CC: GI bleed Patient is seen, awake alert, family at bedside. States she rested well overnight. She denies any overt bleeding at this time however states she has not had a bowel movement today. She denies any abdominal pain but does have the urge to defecate now. Denies any nausea or vomiting. Abdomen is soft, nontender. She continues with hao-pressor support. H&H is stable . Stools negative for CDF and no WBCs seen. ROS: Denies shortness of breath or chest pain Exam (Progress Note) - Constitutional Vitals: Period Temp Pulse Resp BP Sys/Katz Pulse Ox Last 24 Hr 97.8 F-98.7 F 71-122 9-26 66-160/40-130 90-98 General appearance: normal weight, no acute distress - Head Head exam: Present: normal inspection, normocephalic - Eye Eye exam: Present: other (Lids and conjunctive are unremarkable). Absent: scleral icterus - ENT ENT exam: Present: normal exam, normal oropharynx - Neck Neck exam: Present: normal inspection - Respiratory Respiratory exam: Present: clear to auscultation bilaterally. Absent: rales, rhonchi, wheezes - Cardiovascular Cardiovascular exam: Present: regular rate and rhythm. Absent: diastolic murmur , JVD, systolic murmur - GI/Abdominal GI/Abdominal exam: Present: normal bowel sounds, soft. Absent: ascites, distended, mass, organomegaly, tenderness - Extremities Exam Extremities exam: Present: normal inspection, full ROM - Back Exam Back exam: Present: normal inspection - Neurological Exam Neurological exam: Present: alert, oriented X3 - Psychiatric Psychiatric exam: Present: normal affect, normal mood - Skin Skin exam: Present: normal color, warm, dry Results - Labs CBC & BMP: 04/14/17 04:00 04/14/17 04:00 Lab Results: I have reviewed the past 24 hour labs
--- NOTE | 2017-04-14 11:38 | Hospitalist Progress Note ---
Assessment and Plan (1) Shock Status: Acute Assessment and plan: 1)shock- hypovolemic from GIB along with dehydration from days of diarrhea and vomiting and also potentially septic shock (may have diverticulitis that caused the bleeding in the first place. No imaging of abdomen at this point because she is improving and her renal failure precludes the use of contrast. steadily decrease hao to off today. Continue hydration with D5W with bicarb. 2)AFSHIN- had contrast on Mar 22, none since, but presented with GIB, shock and dehydration. renal recovery underway with big drop in creatinine to 3.3 this morning. 3)?diverticulitis or ischemic colitis- continue antibiotics, cultures neg in stool and blood at this time. Cscope in future. Current Visit: Yes (2) Peripheral vascular disease Status: Chronic Current Visit: Yes (3) Chronic obstructive pulmonary disease Status: Acute Current Visit: Yes (4) Acute posthemorrhagic anemia Status: Acute Current Visit: Yes (5) Acute renal failure Status: Acute Current Visit: Yes (6) GI bleed Status: Acute Current Visit: Yes Hospitalist: Subjective Interval history: Mrs Mendoza is doing well this morning. She denies pain other than persistent soreness in her abdomen which she relates to vomiting. She has had no more GIB. No diarrhea. HEr urine is clearing up in the isaac tubing. She is on Hao at 195mcg at this time and I have discussed weaning goals with her nurse Shani who has been titrating it down this morning. She is tolerating it so far. She is breathing comfortably. Exam - Constitutional Vitals: Period Temp Pulse Resp BP Sys/Katz Pulse Ox Last 24 Hr 98.0 F-98.7 F 71-122 9-26 66-160/40-130 90-98 General appearance: no acute distress, over weight - Eye Eye exam: Present: EOMI. Absent: scleral icterus - Respiratory Respiratory exam: Present: clear to auscultation bilaterally - Cardiovascular Cardiovascular exam: Present: regular rate and rhythm - GI/Abdominal GI/Abdominal exam: Present: normal bowel sounds, tenderness (mild generalized tenderness today, no focal tenderness rebound or guarding.), soft - Extremities Exam Extremities exam: Absent: edema - Neurological Exam Neurological exam: Present: alert, oriented X3 - Skin Skin exam: Present: warm, dry Results - Labs CBC & BMP: 04/14/17 04:00 04/14/17 04:00 Lab Results: I have reviewed the past 24 hour labs Quality Measures - VTE Contraindication to Pharmacological VTE Prophylaxis: Active Bleeding
[2017-04-14] MEDS: SODIUM CHLORIDE 0.45% 1,000 ML IV SCH (13:30)
[2017-04-14] MEDS ORDERED: FUROSEMIDE 40 MG/4 ML VIAL IV ONE (14:00)
[2017-04-14] MEDS: NOREPINEPHRINE 16 MG in SODIUM CHLORIDE 0.9% 234 ML IV SCH (18:16)
--- NOTE | 2017-04-14 19:43 | Nephrology Progress Note ---
Nephrology - PN: Subj Interval history: The patient continues to show signs of improvement. Serum creatinine is now down to 3.3. She responded nicely to IV Lasix today. Hemodynamics are is improving. She voices no complaints. Exam (PN)-Nephrology - Vital Signs Vital signs: Period Temp Pulse Resp BP Sys/Katz Pulse Ox Last 24 Hr 97.2 F-98.7 F 71-122 9-26 70-160/40-130 89-98 - General Appearance General appearance: well-developed, well-nourished EENT: ATNC Neck: supple Respiratory: clear Cardiology: regular rate, regular rhythm Gastrointestinal: normoactive bowel sounds, no tenderness Integumentary: no rash, warm and dry Neurologic: alert and oriented x3, CN 3-12 intact Musculoskeletal: no clubbing Psychiatric: mood/affect appropriate, cooperative - Lab 04/14/17 04:00 04/14/17 04:00 Most recent lab results Calcium 6.5 MG/DL (8.5-10.1) L 04/14/17 04:00 Magnesium 2.2 MG/DL (1.8-2.4) 04/13/17 03:43 Assessment and Plan (1) Acute renal failure Status: Acute Assessment and plan: More likely ATN due to hypotension. Acute renal failure is continuing to improve. Moreover patient has had exposure to contrast. IV fluids have been adjusted. Daily BMP. Current Visit: Yes Qualifiers: Acute renal failure type: with acute tubular necrosis Qualified Code(s): N17.0 - Acute kidney failure with tubular necrosis (2) Lower gastrointestinal hemorrhage Status: Acute Assessment and plan: Hemodynamics are noted. Currently patient is on pressor medications. Current Visit: Yes (3) Peripheral vascular disease Status: Chronic Current Visit: Yes (4) GI bleed Status: Acute Current Visit: Yes
[2017-04-14] MEDS: ALBUTEROL/IPRATROPIUM 3 ML NEB RESP TX SCH (20:27)
[2017-04-15] MEDS ORDERED: ALBUTEROL/IPRATROPIUM 3 ML NEB RESP TX SCH ×2 (01:00→20:04)
[2017-04-15] MEDS: ALBUTEROL/IPRATROPIUM 3 ML NEB RESP TX SCH ×4 (01:04→20:06)
[2017-04-15] MEDS: metroNIDAZOLE INJ 500 MG in PREMIX 1 EACH IV SCH ×3 (02:19→18:10)
[2017-04-15] MEDS: SODIUM CHLORIDE 0.45% 1,000 ML IV SCH ×2 (02:51→16:51)
[2017-04-15] MEDS: SUCRALFATE 1 GM/10 ML UDCUP PO SCH ×4 (06:33→20:16)
[2017-04-15 08:25] LABS: Basophils % 0.3 % (0.0-0.8); Eosinophils % 0.7 % (0.00-10.9); Hematocrit 32.8 VOL% (35.7-47.0); Hemoglobin 10.9 GM/DL (12.0-16.0); Immature Granulocytes % 2.1 %; Immature Granulocytes Absolute 0.13 #; Lymphocytes # 1.5 10*3/uL (1.4-4.0); Lymphocytes % 24.2 % (21.3-54.2); Mean Corpuscular HGB Conc 33.2 GM/DL (32-36); Mean Corpuscular Hemoglobin 31 PG (27-34); Mean Corpuscular Volume 92.7 FL (87-102); Mean Platelet Volume 10.6 FL (9.6-12.0); Monocytes # 0.8 10*3/uL (0.11-0.8); Monocytes % 12.4 % (1.7-12.7); NRBC # 0.07 10*3/uL; Neutrophils # 3.7 10*3/uL (1.4-7.4); Neutrophils % 60.3 % (38.7-73.9); Platelet Count 215 T/CUMM (130-400); Red Blood Count 3.54 MC/CUMM (3.8-5.5); Red Cell Distribution Width 16.6 % (9.3-17.3); White Blood Count 6.1 T/CUMM (4-12)
[2017-04-15 08:47] LABS: Osmolality,Calculated 285.1 MOS/KG (273-304); Potassium 3.4 MMOL/L (3.5-5.1)
[2017-04-15 08:48] LABS: Band Neutrophils 6 % (0-10); Hypochromasia 1+; Lymphocytes 19 % (20-55); Microcytosis 1+; Nucleated Red Blood Cells 3 (0-5); Ovalocytes Slight; Polychromasia Slight; Segmented Neutrophils 59 % (50-85); Total Cells Counted 100
[2017-04-15 08:49] LABS: Platelet Estimate Normal
[2017-04-15 08:52] LABS: Calcium 5.7 MG/DL (8.5-10.1)
[2017-04-15] MEDS: PANTOPRAZOLE 40 MG VIAL IV SCH (09:27)
[2017-04-15] MEDS: CLORAZEPATE 7.5 MG TABLET PO SCH ×2 (09:28→20:16)
[2017-04-15] MEDS: levETIRAcetam 500 MG TABLET PO SCH ×2 (09:29→20:16)
[2017-04-15] MEDS: SERTRALINE 25 MG TABLET PO SCH (09:29)
--- NOTE | 2017-04-15 09:41 | XRay Report ---
XR KUB Indication: Abdominal pain. Abdomen one view: Comparison 04/12/2017 shows increased gaseous distention of the colon without dilatation. Increased gaseous prominence of small bowel noted as well, also not dilated yet. No free air. No pneumatosis. Impression: Increased gaseous distention of the large and small bowel as described, consistent with severe ileus. PROCEDURE INTERPRETED AT [facility] DEPARTMENT OF RADIOLOGY Final Report Signed by: Remy Andersen M.D.
[2017-04-15] MEDS ORDERED: CALCIUM GLUCONATE 1,000 MG in SODIUM CHLORIDE 0.9% 100 ML IV ONE (11:00)
--- NOTE | 2017-04-15 11:32 | Gastrointestinal Progress Note ---
Assessment and Plan (1) GI bleed Status: Acute Assessment and plan: 04/15-H&H remained stable at present time. No reports of overt bleeding. KUB shows ileus at this time. Continue to monitor present time. Hao-is off at this time. Plan an addendum follow Dr. Andrade. 04/14-no further reports of bleeding at this time. H&H is stable. Continue to monitor at present time. Continuing to require Hao-Synephrine. Plan an addendum to followed by Dr. Andrade. 04/13-onset of rectal bleeding with diarrhea stools times several days with lower abdominal cramping. On Pletal and aspirin therapy. Has been transfused 2 units packed red blood cells. Unable to locate endoscopy records. Monitor H& H. Clear liquid diet. Plan an addendum to followed by Dr. Andrade. Current Visit: Yes Gastroenterology - PN: Subj Interval history: CC: GI bleed Patient is seen, awake and alert. States she rested well overnight. She denies any abdominal pain, nausea or vomiting. She is complaining of some gas pressure however abdominal x-ray was obtained which shows increased gaseous distention of large and small bowel with severe ileus. Patient denies any further overt bleeding. Her last bowel movement was documented 2 days ago. Abdomen is soft, nontender. H&H stable at . She is required no further blood transfusions since admission. ROS: Denies shortness breath or chest pain Exam (Progress Note) - Constitutional Vitals: Period Temp Pulse Resp BP Sys/Katz Pulse Ox Last 24 Hr 96.7 F-98.2 F 79-117 - 85-134/50-90 85-100 - Other Additional findings: General appearance: normal weight, no acute distress - Head Head exam: Present: normal inspection, normocephalic - Eye Eye exam: Present: other (Lids and conjunctive are unremarkable). Absent: scleral icterus - ENT ENT exam: Present: normal exam, normal oropharynx - Neck Neck exam: Present: normal inspection - Respiratory Respiratory exam: Present: clear to auscultation bilaterally. Absent: rales, rhonchi, wheezes - Cardiovascular Cardiovascular exam: Present: regular rate and rhythm. Absent: diastolic murmur , JVD, systolic murmur - GI/Abdominal GI/Abdominal exam: Present: normal bowel sounds, soft. Absent: ascites, distended, mass, organomegaly, tenderness - Extremities Exam Extremities exam: Present: normal inspection, full ROM - Back Exam Back exam: Present: normal inspection - Neurological Exam Neurological exam: Present: alert, oriented X3 - Psychiatric Psychiatric exam: Present: normal affect, normal mood - Skin Skin exam: Present: normal color, warm, dry Results - Labs CBC & BMP: 04/15/17 08:10 04/15/17 08:10 Lab Results: I have reviewed the past 24 hour labs
[2017-04-15] MEDS: LEVOFLOXACIN INJ 250 MG in PREMIX 1 EACH IV SCH (11:39)
--- NOTE | 2017-04-15 11:51 | Hospitalist Progress Note ---
Assessment and Plan (1) Shock Status: Acute Assessment and plan: 1)shock- hypovolemic from GIB along with dehydration from days of diarrhea and vomiting and also potentially septic shock (may have diverticulitis v ischemic colitis that caused the bleeding in the first place). No imaging of abdomen at this point because she is improving and her renal failure precludes the use of contrast. Off Hao now, fluids decreased. 2)AFSHIN- had contrast on Mar 22, none since, but presented with GIB, shock and dehydration. renal recovery underway with creatinine now 1.8 this morning. 3)?diverticulitis or ischemic colitis- continue antibiotics, cultures neg in stool and blood at this time. Cscope in future. If cultures still negative tomorrow, stop antibiotics. 4)hypocalcemia- replace. her albumin is also low. Current Visit: Yes (2) Peripheral vascular disease Status: Chronic Current Visit: Yes (3) Chronic obstructive pulmonary disease Status: Acute Current Visit: Yes (4) Acute posthemorrhagic anemia Status: Acute Current Visit: Yes (5) Acute renal failure Status: Acute Current Visit: Yes (6) GI bleed Status: Acute Current Visit: Yes Hospitalist: Subjective Interval history: Mrs Mendoza is doing well this morning. She is off pressors for a few hours. She complains of abdominal distention and bloating and has not had BM or flatus since admission. She is tolerating clears. Exam - Constitutional Vitals: Period Temp Pulse Resp BP Sys/Katz Pulse Ox Last 24 Hr 96.7 F-98.2 F 79-117 10-23 85-134/50-90 85-100 General appearance: no acute distress, over weight - Head Head exam: Present: normocephalic, atraumatic - Eye Eye exam: Present: EOMI. Absent: scleral icterus - Respiratory Respiratory exam: Present: clear to auscultation bilaterally - Cardiovascular Cardiovascular exam: Present: regular rate and rhythm - GI/Abdominal GI/Abdominal exam: Present: distended, hypoactive bowel sounds, tenderness ( mild general tenderness) - Neurological Exam Neurological exam: Present: alert, oriented X3, CN II-XII intact - Skin Skin exam: Present: warm, dry Results - Labs CBC & BMP: 04/15/17 08:10 04/15/17 08:10 Lab Results: I have reviewed the past 24 hour labs Quality Measures - VTE Contraindication to Pharmacological VTE Prophylaxis: Active Bleeding
[2017-04-15 12:50] LABS: Hepatitis A Ab IgM Quant 0.06 Index; Hepatitis A Ab IgM Result Negative (Negative); Hepatitis B Core IgM Quant 0.13 Index; Hepatitis B Core IgM Result Negative (Negative); Hepatitis B Surface Ag Quant < 0.10 Index; Hepatitis B Surface Ag Result Negative (Negative); Hepatitis C Virus Ab Quant 0.03 Index; Hepatitis C Virus Ab Result Negative (Negative)
[2017-04-15] MEDS ORDERED: SIMETHICONE CHEW 80 MG TABLET PO PRN (13:53)
--- NOTE | 2017-04-15 14:31 | Nephrology Progress Note ---
Nephrology - PN: Subj Interval history: The patient continues to show signs of improvement. Serum creatinine is now down to 3.3. She responded nicely to IV Lasix today. Hemodynamics are is improving. She voices no complaints. 04/15/2017. The patient is resting comfortably. Sitting up on side of the bed. Serum creatinine is now down to 1. No other acute changes. Will sign off please call us as needed. Exam (PN)-Nephrology - Vital Signs Vital signs: Period Temp Pulse Resp BP Sys/Katz Pulse Ox Last 24 Hr 96.7 F-98.2 F 79-117 10- 85-134/50-90 85-100 - General Appearance General appearance: well-developed, well-nourished EENT: ATNC Neck: supple Respiratory: clear Cardiology: regular rate, regular rhythm Gastrointestinal: normoactive bowel sounds, no tenderness Neurologic: alert and oriented x3 Musculoskeletal: no clubbing Psychiatric: mood/affect appropriate, cooperative - Lab 04/15/17 08:10 04/15/17 08:10 Most recent lab results Calcium 5.7 MG/DL (8.5-10.1) L* 04/15/17 08:10 Magnesium 2.2 MG/DL (1.8-2.4) 04/13/17 03:43 Assessment and Plan (1) Acute renal failure Status: Resolved Assessment and plan: More likely ATN due to hypotension. Acute renal failure has resolved. No new recommendations. Will sign off. Moreover patient has had exposure to contrast. IV fluids have been adjusted. Current Visit: Yes Qualifiers: Acute renal failure type: with acute tubular necrosis Qualified Code(s): N17.0 - Acute kidney failure with tubular necrosis (2) Lower gastrointestinal hemorrhage Status: Resolved Assessment and plan: The patient is doing acceptable. Current Visit: Yes (3) Peripheral vascular disease Status: Chronic Current Visit: Yes (4) GI bleed Status: Acute Current Visit: Yes
[2017-04-15] MEDS: NOREPINEPHRINE 16 MG in SODIUM CHLORIDE 0.9% 234 ML IV SCH (18:37)
[2017-04-15] MEDS: PHENYLEPHRINE INJ 80 MG in SODIUM CHLORIDE 0.9% 242 ML IV SCH (20:15)
[2017-04-16] MEDS: metroNIDAZOLE INJ 500 MG in PREMIX 1 EACH IV SCH ×3 (02:40→17:38)
[2017-04-16] MEDS: ALBUTEROL/IPRATROPIUM 3 ML NEB RESP TX SCH ×4 (02:53→20:51)
[2017-04-16] MEDS ORDERED: NALOXONE 0.4 MG/ML VIAL ONE (02:55)
[2017-04-16 03:30] LABS: ABG Base Excess 6.8 MMOL/L (-2.5-2.5); ABG HCO3 32.4 MMOL/L (20-26); ABG Oxygen Saturation 97.6 % (95-100); ABG PCO2 51.3 MM HG (35-48); ABG PH 7.418 (7.35-7.45); ABG PO2 111.5 MM HG (80-95); Allen Test Positive; Pt O2 Delivery Device CPAP
[2017-04-16 04:16] LABS: Basophils % 0.3 % (0.0-0.8); Eosinophils % 0.6 % (0.00-10.9); Hematocrit 33.5 VOL% (35.7-47.0); Hemoglobin 11.3 GM/DL (12.0-16.0); Immature Granulocytes % 2.7 %; Immature Granulocytes Absolute 0.19 #; Lymphocytes # 1.7 10*3/uL (1.4-4.0); Lymphocytes % 23.8 % (21.3-54.2); Mean Corpuscular HGB Conc 33.7 GM/DL (32-36); Mean Corpuscular Hemoglobin 31 PG (27-34); Mean Corpuscular Volume 93.1 FL (87-102); Mean Platelet Volume 10.6 FL (9.6-12.0); Monocytes # 0.7 10*3/uL (0.11-0.8); Monocytes % 9.2 % (1.7-12.7); NRBC # 0.09 10*3/uL; Neutrophils # 4.5 10*3/uL (1.4-7.4); Neutrophils % 63.4 % (38.7-73.9); Platelet Count 250 T/CUMM (130-400); Red Cell Distribution Width 16.2 % (9.3-17.3); White Blood Count 7.1 T/CUMM (4-12)
--- NOTE | 2017-04-16 04:18 | Event Note ---
Called to the bedside by RN reporting patient refusing to wear C-pap mask for the last two nights. Breathing treatments were ordered but have not helped tonight. Patient's oxygen saturations now in the 60's and patient is unresponsive. Upon my arrival, patient is awake, receiving a breathing treatment with oxygen saturations 100%. Asked patient why she was not wearing her C-pap machine and she stated that Medicare would not pay for it. Explained to patient the need to wear oxygen and her chances of being intubated if her oxygen saturations and mentation declined. She verbalized understanding and allowed the respiratory therapist to place her on C-pap machine. She stated that it has been five years since she has had a sleep study. She will need to have a more recent sleep study and clinical social work therapist will be consulted to help her with purchasing a C-pap machine for at home.
[2017-04-16 04:44] LABS: Potassium 3.9 MMOL/L (3.5-5.1)
[2017-04-16 05:16] LABS: Calcium 5.6 MG/DL (8.5-10.1)
[2017-04-16] MEDS: SODIUM CHLORIDE 0.45% 1,000 ML IV SCH ×2 (07:06→21:20)
--- NOTE | 2017-04-16 07:28 | Hospitalist Progress Note ---
Assessment and Plan - Time spent with patient Time spent with patient: Less than 30 minutes (1) Shock Status: Acute Assessment and plan: Patient was admitted with shock which was felt to be secondary to hypovolemia secondary to GI bleed with acute blood loss. There is question of potential septic shock from a diverticulitis or ischemic colitis and therefore she has been placed on IV antibiotics as further imaging of the colon was precluded because of her acute kidney injury. She is now off pressors and otherwise hemodynamically stable. Current Visit: Yes (2) GI bleed Status: Acute Assessment and plan: Patient had GI bleeding. She no longer reports any overt bleeding. She denies any nausea or vomiting and is tolerating full liquid diet. H&H remained stable. GI continues to follow. Consider transfer to the floor later today if GI agrees. Current Visit: Yes (3) Acute renal failure Status: Resolved Assessment and plan: Patient had acute kidney injury however this resolved creatinine is now less than 1.0. Nephrology has signed off the case. Current Visit: Yes (4) Chronic obstructive pulmonary disease Status: Chronic Assessment and plan: Patient has a history of COPD and likely has some obstructive sleep apnea. Last evening she had decrease in mental status offers BiPAP. She is now mentally alert and awake while requiring BiPAP. Have encouraged her to continue usage. Current Visit: Yes Hospitalist: Subjective Interval history: Chart reviewed and patient examined. 52-year-old female who presented with shock which was secondary to hypovolemia secondary to GI bleeding and acute blood loss. She is now hemodynamically stable and tolerating her diet. She is off pressors as well. H&H has remained stable. She has had no overt bleeding, nausea, vomiting, diarrhea. Exam - Constitutional Vitals: Period Temp Pulse Resp BP Sys/Katz Pulse Ox Last 24 Hr 97.3 F-98.2 F 100-115 11-26 76-130/54-87 79-98 General appearance: no acute distress, other (Wearing BiPAP) - Head Head exam: Present: normocephalic, atraumatic - Eye Eye exam: Present: EOMI Pupils: Present: SEAN - ENT ENT exam: Present: normal exam - Neck Neck exam: Present: normal inspection - Respiratory Respiratory exam: Present: clear to auscultation bilaterally. Absent: rales, rhonchi, wheezes - Cardiovascular Cardiovascular exam: Present: regular rate and rhythm, tachycardia. Absent: systolic murmur - GI/Abdominal GI/Abdominal exam: Present: normal bowel sounds, tenderness (Generalized tenderness), soft. Absent: rebound - Extremities Exam Extremities exam: Absent: calf tenderness, edema - Neurological Exam Neurological exam: Present: alert, oriented X3, CN II-XII intact. Absent: motor sensory deficit - Psychiatric Psychiatric exam: Present: normal affect, normal mood. Absent: agitated, anxious - Skin Skin exam: Present: warm, dry. Absent: erythema Results - Labs CBC & BMP: 04/16/17 04:00 04/16/17 04:00 Lab Results: I have reviewed the past 24 hour labs Quality Measures - VTE Contraindication to Pharmacological VTE Prophylaxis: Active Bleeding
[2017-04-16] MEDS: ZINC OXIDE 16% PASTE 57 GM TUBE TOP PRN ×3 (08:16→19:52)
[2017-04-16] MEDS: SERTRALINE 25 MG TABLET PO SCH ×2 (09:28→21:20)
[2017-04-16] MEDS: PANTOPRAZOLE 40 MG VIAL IV SCH (09:28)
[2017-04-16] MEDS: CLORAZEPATE 7.5 MG TABLET PO SCH ×2 (09:29→21:20)
[2017-04-16] MEDS: SUCRALFATE 1 GM/10 ML UDCUP PO SCH ×4 (09:30→21:20)
[2017-04-16] MEDS: levETIRAcetam 500 MG TABLET PO SCH ×2 (09:30→21:20)
[2017-04-17] MEDS: ALBUTEROL/IPRATROPIUM 3 ML NEB RESP TX SCH ×4 (01:33→19:19)
[2017-04-17] MEDS: metroNIDAZOLE INJ 500 MG in PREMIX 1 EACH IV SCH ×3 (02:10→21:51)
[2017-04-17] MEDS: ZINC OXIDE 16% PASTE 57 GM TUBE TOP PRN ×3 (04:00→06:03)
[2017-04-17 04:51] LABS: Basophils % 0.2 % (0.0-0.8); Eosinophils % 0.7 % (0.00-10.9); Hematocrit 31.8 VOL% (35.7-47.0); Hemoglobin 10.7 GM/DL (12.0-16.0); Immature Granulocytes % 2.3 %; Immature Granulocytes Absolute 0.14 #; Lymphocytes # 1.3 10*3/uL (1.4-4.0); Lymphocytes % 21.3 % (21.3-54.2); Mean Corpuscular HGB Conc 33.6 GM/DL (32-36); Mean Corpuscular Hemoglobin 31 PG (27-34); Mean Corpuscular Volume 92.2 FL (87-102); Mean Platelet Volume 10.4 FL (9.6-12.0); Monocytes # 0.4 10*3/uL (0.11-0.8); Monocytes % 6.5 % (1.7-12.7); NRBC # 0.04 10*3/uL; Neutrophils # 4.1 10*3/uL (1.4-7.4); Platelet Count 198 T/CUMM (130-400); Red Blood Count 3.45 MC/CUMM (3.8-5.5)
[2017-04-17 05:18] LABS: Magnesium 0.9 MG/DL (1.8-2.4); Osmolality,Calculated 279.3 MOS/KG (273-304); Potassium 3.1 MMOL/L (3.5-5.1)
[2017-04-17 05:41] LABS: Calcium 5.2 MG/DL (8.5-10.1)
--- NOTE | 2017-04-17 07:53 | Hospitalist Progress Note ---
Assessment and Plan - Time spent with patient Time spent with patient: Less than 30 minutes (1) Shock Status: Acute Assessment and plan: Patient was admitted with shock which was felt to be secondary to hypovolemia secondary to GI bleed with acute blood loss. There is question of potential septic shock from a diverticulitis or ischemic colitis and therefore she has been placed on IV antibiotics as further imaging of the colon was precluded because of her acute kidney injury. She is now off pressors and otherwise hemodynamically stable. 04/17/17: Patient is off pressors, hemodynamically stable, tolerating full liquid diet, having no evidence of active bleeding. Hemoglobin and hematocrit remained stable. Will plan transfer to the floor and advance her diet. Current Visit: Yes (2) GI bleed Status: Acute Assessment and plan: Patient had GI bleeding. She no longer reports any overt bleeding. She denies any nausea or vomiting and is tolerating full liquid diet. H&H remained stable. GI continues to follow. Consider transfer to the floor later today if GI agrees. 04/17/17: H&H remained stable and there is no reports of further bleeding. She is tolerating a liquid diet. Will transfer to the floor today. Current Visit: Yes (3) Acute renal failure Status: Resolved Assessment and plan: Patient had acute kidney injury however this resolved creatinine is now less than 1.0. Nephrology has signed off the case. Current Visit: Yes (4) Chronic obstructive pulmonary disease Status: Chronic Assessment and plan: Patient has a history of COPD and likely has some obstructive sleep apnea. Last evening she had decrease in mental status offers BiPAP. She is now mentally alert and awake while requiring BiPAP. Have encouraged her to continue usage. Current Visit: Yes Hospitalist: Subjective Interval history: Patient is doing well today without any complaints. She is tolerating full liquid diet. She has had no evidence of further bleeding. She denies any chest pain, shortness breath, abdominal pain, nausea, vomiting. She has had some loose stools which have been nonbloody. Exam - Constitutional Vitals: Period Temp Pulse Resp BP Sys/Katz Pulse Ox Last 24 Hr 98.5 F-99.4 F 100-122 11-23 78-141/49-84 91-99 General appearance: no acute distress - Head Head exam: Present: normocephalic, atraumatic - Eye Eye exam: Present: EOMI Pupils: Present: SEAN - ENT ENT exam: Present: normal exam - Neck Neck exam: Present: normal inspection - Respiratory Respiratory exam: Present: clear to auscultation bilaterally - Cardiovascular Cardiovascular exam: Present: regular rate and rhythm, tachycardia - GI/Abdominal GI/Abdominal exam: Present: normal bowel sounds, soft. Absent: tenderness, rebound - Extremities Exam Extremities exam: Absent: calf tenderness, edema - Neurological Exam Neurological exam: Present: alert, oriented X3, CN II-XII intact. Absent: motor sensory deficit - Psychiatric Psychiatric exam: Present: normal affect, normal mood. Absent: agitated, anxious - Skin Skin exam: Present: warm, dry. Absent: erythema, rash Results - Labs CBC & BMP: 04/17/17 04:38 04/17/17 04:38 Lab Results: I have reviewed the past 24 hour labs Quality Measures - VTE Contraindication to Pharmacological VTE Prophylaxis: Active Bleeding
[2017-04-17] MEDS: SUCRALFATE 1 GM/10 ML UDCUP PO SCH ×4 (08:05→21:54)
[2017-04-17] MEDS: CLORAZEPATE 7.5 MG TABLET PO SCH ×2 (08:05→21:52)
[2017-04-17] MEDS: PANTOPRAZOLE 40 MG VIAL IV SCH (08:07)
[2017-04-17] MEDS: levETIRAcetam 500 MG TABLET PO SCH ×2 (08:07→21:53)
[2017-04-17] MEDS: SODIUM CHLORIDE 0.45% 1,000 ML IV SCH (11:36)
[2017-04-17] MEDS: PANTOPRAZOLE 40 MG TABLET PO SCH ×2 (11:38→21:52)
[2017-04-17] MEDS: LEVOFLOXACIN INJ 250 MG in PREMIX 1 EACH IV SCH (11:51)
[2017-04-17] MEDS ORDERED: CALCIUM GLUCONATE 1,000 MG in SODIUM CHLORIDE 0.9% 100 ML IV ONE (13:28)
[2017-04-17] MEDS ORDERED: POTASSIUM CHLORIDE RIDER 10 MEQ in PREMIX 1 EACH IV PRN (15:04)
[2017-04-17] MEDS ORDERED: MAGNESIUM SULF RIDER 4 GM in PREMIX 1 EACH IV PRN (15:04)
[2017-04-17] MEDS: CALCIUM CARBONATE CHEW 500 MG TABLET PO SCH ×2 (15:55→21:52)
[2017-04-17] MEDS: POTASSIUM CHLORIDE 20 MEQ TABLET PO PRN ×3 (16:39→22:01)
[2017-04-17] MEDS: MAGNESIUM SULF RIDER 2 GM in PREMIX 1 EACH IV PRN ×2 (16:40→18:15)
[2017-04-17] MEDS: SERTRALINE 25 MG TABLET PO SCH (21:52)
[2017-04-18] MEDS: ALBUTEROL/IPRATROPIUM 3 ML NEB RESP TX SCH ×4 (00:41→20:00)
[2017-04-18] MEDS: POTASSIUM CHLORIDE 20 MEQ TABLET PO PRN ×3 (00:43→08:43)
[2017-04-18] MEDS: metroNIDAZOLE INJ 500 MG in PREMIX 1 EACH IV SCH ×2 (03:39→10:23)
[2017-04-18] MEDS: SODIUM CHLORIDE 0.45% 1,000 ML IV SCH ×3 (03:41→11:15)
[2017-04-18 05:55] LABS: Basophils % 0.2 % (0.0-0.8); Eosinophils # 0.1 10*3/uL (0.0-0.87); Hematocrit 31.2 VOL% (35.7-47.0); Hemoglobin 10.2 GM/DL (12.0-16.0); Immature Granulocytes % 1.8 %; Immature Granulocytes Absolute 0.09 #; Lymphocytes % 20.3 % (21.3-54.2); Mean Corpuscular HGB Conc 32.7 GM/DL (32-36); Mean Corpuscular Hemoglobin 30 PG (27-34); Mean Corpuscular Volume 92.3 FL (87-102); Mean Platelet Volume 10.5 FL (9.6-12.0); Monocytes # 0.3 10*3/uL (0.11-0.8); Monocytes % 6.4 % (1.7-12.7); NRBC # 0.04 10*3/uL; Neutrophils # 3.4 10*3/uL (1.4-7.4); Neutrophils % 70.3 % (38.7-73.9); Platelet Count 199 T/CUMM (130-400); Red Blood Count 3.38 MC/CUMM (3.8-5.5); Red Cell Distribution Width 16.1 % (9.3-17.3); White Blood Count 4.9 T/CUMM (4-12)
[2017-04-18 06:29] LABS: Magnesium 1.7 MG/DL (1.8-2.4); Osmolality,Calculated 282.8 MOS/KG (273-304); Potassium 3.5 MMOL/L (3.5-5.1)
[2017-04-18] MEDS: SUCRALFATE 1 GM/10 ML UDCUP PO SCH ×4 (06:30→20:51)
[2017-04-18 06:31] LABS: Calcium 5.5 MG/DL (8.5-10.1)
[2017-04-18] MEDS: MAGNESIUM SULF RIDER 2 GM in PREMIX 1 EACH IV PRN (06:58)
[2017-04-18 08:29] LABS: Free T4 (Free Thyroxine) 1.49 NG/DL (0.76-1.46); Thyroid Stimulating Hormone 4.63 uIU/ml (0.358-3.74)
--- NOTE | 2017-04-18 08:40 | Gastrointestinal Progress Note ---
Assessment and Plan (1) GI bleed Status: Acute Assessment and plan: 04/18-H&H stable 06/21. Continue complaints of abdominal discomfort. No nausea vomiting. Poor appetite. Continue to monitor present time. Plan an addendum follow Dr. Andrade. 04/15-H&H remained stable at present time. No reports of overt bleeding. KUB shows ileus at this time. Continue to monitor present time. Hao-is off at this time. Plan an addendum follow Dr. Andrade. 04/14-no further reports of bleeding at this time. H&H is stable. Continue to monitor at present time. Continuing to require Hao-Synephrine. Plan an addendum to followed by Dr. Andrade. 04/13-onset of rectal bleeding with diarrhea stools times several days with lower abdominal cramping. On Pletal and aspirin therapy. Has been transfused 2 units packed red blood cells. Unable to locate endoscopy records. Monitor H& H. Clear liquid diet. Plan an addendum to followed by Dr. Andrade. Current Visit: Yes Gastroenterology - PN: Subj Interval history: CC: GI bleed Patient is seen, awake and alert Receiving morning care. States that she is feeling about the same at this time. She is having continued abdominal discomfort however normal bowel movements at present. She had a bowel movement early this morning and she denies any overt bleeding with this. Denies any nausea or vomiting. Appetite is fair at this time. She states she just does not like eating very much. Patient was noted to have a couple drops of bright red blood during her morning care however nursing staff is uncertain as to the source of this. They will check her groin central line sites and if no bleeding noted from this area they will check stools for occult blood. H&H stable at 06/21. Abdomen is soft, nontender. ROS: Denies shortness breath or chest pain Exam (Progress Note) - Constitutional Vitals: Period Temp Pulse Resp BP Sys/Katz Pulse Ox Last 24 Hr 96.8 F-98.6 F 88-112 16-20 108-124/70-84 93-99 General appearance: normal weight, no acute distress - Head Head exam: Present: normal inspection, normocephalic - Eye Eye exam: Present: other (Lids and conjunctive are unremarkable). Absent: scleral icterus - ENT ENT exam: Present: normal exam, normal oropharynx - Neck Neck exam: Present: normal inspection - Respiratory Respiratory exam: Present: clear to auscultation bilaterally. Absent: rales, rhonchi, wheezes - Cardiovascular Cardiovascular exam: Present: regular rate and rhythm. Absent: diastolic murmur , JVD, systolic murmur - GI/Abdominal GI/Abdominal exam: Present: normal bowel sounds, soft. Absent: ascites, distended, mass, organomegaly, tenderness - Extremities Exam Extremities exam: Present: normal inspection, full ROM - Back Exam Back exam: Present: normal inspection - Neurological Exam Neurological exam: Present: alert, oriented X3 - Psychiatric Psychiatric exam: Present: normal affect, normal mood - Skin Skin exam: Present: normal color, warm, dry Results - Labs CBC & BMP: 04/18/17 05:27 04/18/17 05:27 Lab Results: I have reviewed the past 24 hour labs
[2017-04-18] MEDS: PANTOPRAZOLE 40 MG TABLET PO SCH ×2 (08:43→20:53)
[2017-04-18] MEDS: CLORAZEPATE 7.5 MG TABLET PO SCH ×2 (08:43→20:52)
[2017-04-18] MEDS: CALCIUM CARBONATE CHEW 500 MG TABLET PO SCH (08:43)
[2017-04-18] MEDS: levETIRAcetam 500 MG TABLET PO SCH ×2 (08:43→20:52)
[2017-04-18] MEDS ORDERED: FETZIMA 40 MG PO SCH (09:00)
[2017-04-18] MEDS ORDERED: CALCIUM GLUCONATE 2,000 MG in SODIUM CHLORIDE 0.9% 100 ML IV ONE (09:13)
--- NOTE | 2017-04-18 09:21 | Event Note ---
So appears to be stabilizing and getting better with return to normal renal function and improve blood counts. Not sure at this point time exactly what was the source of her GI bleeding. I am going to tentatively make an appointment to see her around May 09 and to begin planning on the right femoral-popliteal bypass if she is adequately recovered by that time.
--- NOTE | 2017-04-18 10:08 | Hospitalist Progress Note ---
Assessment and Plan (1) Shock Status: Acute Assessment and plan: due to hypovolemia secondary to GI bleed with acute blood loss to r/o infection.This has improved, patient no longer on pressors. H/H is stable.BC and SC are negative Plan UC continue IV antibiotics, IVF Current Visit: Yes (2) GI bleed Status: Acute Assessment and plan: H&H remained stable and there is no reports of further bleeding. She is s/p 2units of packed cells. Plan Continue to hold Pletal and aspirin Follow GI's recommendations Current Visit: Yes (3) Acute renal failure Status: Resolved Assessment and plan: Patient had acute kidney injury however this resolved creatinine is now less than 1.0. Nephrology has signed off the case. Current Visit: Yes (4) Hypocalcemia Status: Acute Assessment and plan: Aetiology is unclear. Parathyroid hormones are high. patient is having some cramps and possibly tetany. Plan Start IV Calcium gluconates, give increase po supplements and add Vit D levels Get Vit D level Parathyroid/thyroid USS Magnesium levels Phosphate level Continue to monitor levels TSH level noted Current Visit: Yes (5) Chronic obstructive pulmonary disease Status: Chronic Assessment and plan: stable Current Visit: Yes Hospitalist: Subjective Interval history: Patient states she was not feeling good this am, that she was hurting all over. Tremors were noted on her upper extremeties. Her calcium level was low. Exam - Constitutional Vitals: Period Temp Pulse Resp BP Sys/Katz Pulse Ox Last 24 Hr 96.8 F-98.6 F 88-108 16-20 110-124/72-84 93-99 General appearance: no acute distress, over weight - Head Head exam: Present: normal inspection - Eye Eye exam: Present: EOMI - Respiratory Respiratory exam: Present: clear to auscultation bilaterally - Cardiovascular Cardiovascular exam: Present: regular rate and rhythm - GI/Abdominal GI/Abdominal exam: Present: normal bowel sounds - Extremities Exam Extremities exam: Present: normal inspection - Neurological Exam Neurological exam: Present: alert, oriented X3 Results - Labs CBC & BMP: 04/18/17 05:27 04/18/17 05:27 Lab Results: I have reviewed the past 24 hour labs Quality Measures - VTE Contraindication to Pharmacological VTE Prophylaxis: Active Bleeding
--- NOTE | 2017-04-18 11:54 | Ultrasound Report ---
Exam: US thyroid Date: 04/18/2017 8:38 AM Comparison: None Indication: Low calcium, elevated PTH Technique:[Multiple transabdominal real-time scans were obtained of the thyroid gland. Color-flow scans obtained. Ultrasound images were captured and stored.] Findings: Right lobe measures 37 x 17 x 12 mm. Left lobe measures 32 x 13 x 12 mm. Color-flow documented. 11 x 8 x 8 mm solid finding in the right isthmus. Impression: The thyroid gland is normal in size. Indeterminant 11 mm solid nodule in the right isthmus. Short-term follow-up thyroid ultrasound may be helpful for further evaluation. If the patient has thyroid symptoms, nuclear medicine BONILLA uptake and thyroid scan may be helpful for further evaluation. If the patient has parathyroid symptoms, parathyroid scan may be helpful for further evaluation. The Ultrasound images were captured and stored. PROCEDURE INTERPRETED AT [facility] DEPARTMENT OF RADIOLOGY Final Report Signed by: Dr. Lula Del Castillo
--- NOTE | 2017-04-18 13:05 | Nephrology Consult Note ---
History of Present Illness Chief complaint: Hypocalcemia History of present illness: Ms. Mendoza is a 52 year old female who was admitted on 04/12/2017 for nausea vomiting and diarrhea. Patient was found to have acute renal failure at that time. She states she had been having nausea vomiting and diarrhea for about a week prior to her presentation. The patient is now having hypocalcemia with a calcium of 5.2 yesterday which is increased to 5.5 today. The patient had an albumin a few days ago 1.9 she also has an elevated PTH, a decreased magnesium and a decreased phosphorus level. The patient has been getting calcium carbonate 2 tablets twice a day she is also getting vitamin D supplementation. Her 25-hydroxy vitamin D level was noted to be low. The patient states she has some weakness and tingling in her extremities but states she has had this for a long time prior to getting sick this admission. Review of some lab about 4 months ago reveals that she had a normal calcium level of around 9.2 mg/dl. ROS: Head -positive headaches ENT - denies sore throat Lymphatics - denies lymphadenopathy Hematology - denies bleeding problems Heart - denies chest pain Lungs -occasional shortness of breath Abdomen -positive abdominal pain Musculoskeletal -suffers from fibromyalgia Skin - denies rash Neurology -told she had a stroke several months ago and a tiny aneurysm in the back of her head. General -positive fever PE: General: in no acute distress Eyes: Pupils are round and reactive, conjunctivae are clear ENT: Nose is clear, O/P is benign Neck: Supple, no thyromegaly Lymphatics: No cervical, supraclavicular or axillary adenopathy Heart: Regular rate and rhythm, no pitting edema however her lower extremities are puffy Lungs: Clear to auscultation anteriorly, chest expansion symmetric Abdomen: Soft, normoactive bowel sounds, no hepatomegaly Musculoskeletal: No joint erythema or effusions or joint asymmetry Skin: Normal turgor, normal hydration, no rash Neuro/Psych: Alert and cooperative with fair insight Home Medications Medication Instructions Recorded Confirmed Type Aspirin 325 mg PO QAM 12/13/16 04/12/17 History Cilostazol 100 mg PO BID 12/13/16 04/12/17 History Clorazepate [Tranxene] 3.75 mg PO BID 12/13/16 04/12/17 History Furosemide Tab [Lasix Tab] 20 mg PO QAM 12/13/16 04/12/17 History Levomilnacipran HCl [Fetzima] 40 mg PO QAM 12/13/16 04/12/17 History Lisinopril 40 mg PO QAM 12/13/16 04/12/17 History Metoprolol Tartrate Tab [Lopressor 50 mg PO BID 12/13/16 04/12/17 History Tab] Pitavastatin Calcium [Livalo] 4 mg PO QPM 12/13/16 04/12/17 History Sertraline HCl 25 mg PO QAM 12/13/16 04/12/17 History Tiotropium Inhalation [Spiriva 18 mcg INH QAM 12/13/16 04/12/17 History Handihaler] traMADol TAB [Ultram] 50 mg PO BID PRN 12/13/16 04/12/17 History levETIRAcetam [Levetiracetam] 500 mg PO BID 04/12/17 04/12/17 History Allergies Allergy/AdvReac Type Severity Reaction Status Date / Time Penicillins Allergy Unknown/Unable Verified 04/12/17 18:25 to obtain Medical,Surgical,& Family Hx - Medical History Cardio: History of: Hypertension Psychological: History of: Depression Neurology: History of: Brain Aneurysm (found in november 2016), Cerebrovascular Accident (november 2016) Rheumatology: History of;: Fibromyalgia Respiratory: History of: COPD Other: History of: Miscellaneous Medical Problems (fibromyalgia) - Surgical History Cardiac Surgeries: Sugical HX of: Cardiac Catheterization Neurologic Surgeries: Surgical HX of: Brain Aneurysm (found in november 2016) Patient denies: Neurologic Surgery Reproductive Surgeries: Surgical HX of;: Gynecologic Surgery, Hysterectomy - Family History Family History: Reports;: Family Hypertension - Social History Smoking Status: Former smoker Frequency of Alcohol Use: None Type of Drug Use: None Exam - Vital Signs Vital signs: Period Temp Pulse Resp BP Sys/Katz Pulse Ox Last 24 Hr 96.8 F-98.6 F 88-108 16-20 110-124/72-84 93-99 Results - Labs CBC & BMP: 04/18/17 05:27 04/18/17 05:27 Assessment and Plan (1) Hypocalcemia Status: Acute Assessment and plan: This patient continues to have a low calcium after renal failure and severely decreased p.o. intake as well as diarrhea and vomiting. She has been getting some IV calcium gluconate as well as calcium carbonate by mouth. She has a low vitamin D level she also has a low albumin level making for a component of pseudo-hypocalcemia. I am going to increase her calcium carbonate replacement to 2000 mg 4 times a day given between meals and at bedtime. I will also start her on calcitriol the active form of vitamin D as with her recent renal injury she may not be converting the vitamin D to the active form. I will also check a albumin level tomorrow. Current Visit: Yes (2) Hypophosphatemia Status: Acute Assessment and plan: I think this is secondary to her decreased p.o. intake from her acute illness as well as her elevated PTH level that is resulting from her hypocalcemia. Current Visit: Yes (3) Hypoalbuminemia Status: Acute Current Visit: Yes (4) Fibromyalgia Status: Acute Current Visit: Yes (5) Hypokalemia Status: Acute Current Visit: Yes (6) Hypomagnesemia Status: Acute Assessment and plan: We will start her on some Slow-Mag Current Visit: Yes (7) Chronic obstructive pulmonary disease Status: Chronic Current Visit: Yes (8) Peripheral vascular disease Status: Chronic Current Visit: Yes (9) Acute renal failure Status: Resolved Assessment and plan: This seems to have resolved Current Visit: Yes
[2017-04-18] MEDS ORDERED: CALCITRIOL 0.5 MCG CAPSULE PO SCH (13:30)
[2017-04-18] MEDS: CHOLECALCIFEROL 400 UNIT TABLET PO SCH ×2 (14:12→20:51)
[2017-04-18] MEDS: MAGNESIUM CHLORIDE 64 MG TABLET PO SCH ×2 (14:12→20:53)
[2017-04-18] MEDS: ZINC OXIDE 16% PASTE 57 GM TUBE TOP PRN (14:13)
[2017-04-18 14:41] LABS: Apearance,Urine CLEAR (Clear); Bilirubin,Urine Negative (Negative); Blood, Urine Moderate mg/dL (Negative); Glucose,Urine (UA) Negative (Negative); Ketones,Urine Negative (Negative); Mucus,Urine Occasional /LPF (Occasional); Nitrite,Urine Negative (Negative); Protein,Urine Negative; RBC,Urine 2 /HPF (0-4); Squamous Epithelial Cell,Urine Occasional /HPF (0-10); Urine Color Yellow (Yellow); Urine Specific Gravity 1.013 (1.001-1.035); Urine Urobilinogen < 2.0 EU/DL (0.2-1.0); WBC,Urine 4 /HPF (0-6)
[2017-04-18] MEDS ORDERED: CALCIUM CARBONATE CHEW 500 MG TABLET PO SCH (15:00)
[2017-04-18] MEDS: metroNIDAZOLE 500 MG TABLET PO SCH (17:35)
[2017-04-18] MEDS: CALCIUM (CARBONATE) 500 MG TABLET PO SCH ×2 (17:35→20:52)
[2017-04-18] MEDS: SERTRALINE 25 MG TABLET PO SCH (20:52)
[2017-04-19] MEDS: ALBUTEROL/IPRATROPIUM 3 ML NEB RESP TX SCH ×4 (00:20→19:04)
[2017-04-19] MEDS: SODIUM CHLORIDE 0.45% 1,000 ML IV SCH (01:30)
[2017-04-19] MEDS: metroNIDAZOLE 500 MG TABLET PO SCH ×4 (01:37→18:02)
[2017-04-19 06:03] LABS: Basophils % 0.3 % (0.0-0.8); Eosinophils # 0.1 10*3/uL (0.0-0.87); Eosinophils % 1.2 % (0.00-10.9); Hematocrit 33.1 VOL% (35.7-47.0); Hemoglobin 10.8 GM/DL (12.0-16.0); Immature Granulocytes % 1.2 %; Immature Granulocytes Absolute 0.14 #; Lymphocytes # 1.4 10*3/uL (1.4-4.0); Lymphocytes % 12.4 % (21.3-54.2); Mean Corpuscular HGB Conc 32.6 GM/DL (32-36); Mean Corpuscular Hemoglobin 30 PG (27-34); Mean Corpuscular Volume 91.4 FL (87-102); Mean Platelet Volume 11.6 FL (9.6-12.0); Monocytes # 1.9 10*3/uL (0.11-0.8); Monocytes % 15.9 % (1.7-12.7); Neutrophils # 8.1 10*3/uL (1.4-7.4); Platelet Count 305 T/CUMM (130-400); Red Blood Count 3.62 MC/CUMM (3.8-5.5); Red Cell Distribution Width 13.7 % (9.3-17.3); White Blood Count 11.7 T/CUMM (4-12)
[2017-04-19 06:25] LABS: Band Neutrophils 1 % (0-10); Eosinophils 1 % (0-10); Lymphocytes 13 % (20-55); Segmented Neutrophils 73 % (50-85); Total Cells Counted 100
[2017-04-19 06:26] LABS: Hypochromasia 1+; Microcytosis 1+; Platelet Estimate Normal
[2017-04-19 06:36] LABS: Albumin 2.5 G/DL (3.4-5.0); Calcium 8.4 MG/DL (8.5-10.1); Osmolality,Calculated 273.8 MOS/KG (273-304); Phosphorous 2.8 MG/DL (2.5-4.9); Potassium 3.8 MMOL/L (3.5-5.1)
[2017-04-19 06:47] LABS: Calcium 8.5 MG/DL (8.5-10.1); Magnesium 1.9 MG/DL (1.8-2.4); Osmolality,Calculated 275.7 MOS/KG (273-304); Potassium 3.8 MMOL/L (3.5-5.1)
--- NOTE | 2017-04-19 07:50 | Gastrointestinal Progress Note ---
Assessment and Plan (1) GI bleed Status: Acute Assessment and plan: 04/19-H&H holding stable at without overt bleeding. Continue complaints of abdominal discomfort, not improved since admission. Loose stools up to 6 daily. Plan for colonoscopy on tomorrow to further evaluate. Plan an addendum to follow Dr. Andrade. 04/18-H&H stable 06/21. Continue complaints of abdominal discomfort. No nausea vomiting. Poor appetite. Continue to monitor present time. Plan an addendum follow Dr. Andrade. 04/15-H&H remained stable at present time. No reports of overt bleeding. KUB shows ileus at this time. Continue to monitor present time. Hao-is off at this time. Plan an addendum follow Dr. Andrade. 04/14-no further reports of bleeding at this time. H&H is stable. Continue to monitor at present time. Continuing to require Hao-Synephrine. Plan an addendum to followed by Dr. Andrade. 04/13-onset of rectal bleeding with diarrhea stools times several days with lower abdominal cramping. On Pletal and aspirin therapy. Has been transfused 2 units packed red blood cells. Unable to locate endoscopy records. Monitor H& H. Clear liquid diet. Plan an addendum to followed by Dr. Andrade. Current Visit: Yes Gastroenterology - PN: Subj Interval history: CC: GI bleed Patient is seen, lying in bed. States she had an uneventful night. She is still complaining of some lower abdominal pain and discomfort but she denies any further overt bleeding. States that she is having loose stools up to 6 or 7 a day. Denies any nausea or vomiting. H&H is holding stable at . Abdomen is soft, mild tenderness to lower quadrant palpation. Patient states she has had no changes in her abdominal pain since onset at this time. Discussed with her regarding proceeding with colonoscopy for further evaluation and patient states that she agrees with proceeding with this. ROS: Denies shortness of breath or chest pain Exam (Progress Note) - Constitutional Vitals: Period Temp Pulse Resp BP Sys/Katz Pulse Ox Last 24 Hr 96.7 F-98.1 F 90-111 18-20 116-137/75-83 97-99 General appearance: no acute distress, over weight - Head Head exam: Present: normal inspection, normocephalic - Eye Eye exam: Present: other (Lids and conjunctivae are unremarkable). Absent: scleral icterus - ENT ENT exam: Present: normal exam, normal oropharynx - Neck Neck exam: Present: normal inspection - Respiratory Respiratory exam: Present: clear to auscultation bilaterally. Absent: rales, rhonchi, wheezes - Cardiovascular Cardiovascular exam: Present: regular rate and rhythm. Absent: diastolic murmur , JVD, systolic murmur - GI/Abdominal GI/Abdominal exam: Present: normal bowel sounds, soft. Absent: ascites, distended, mass, organomegaly, tenderness - Extremities Exam Extremities exam: Present: normal inspection, full ROM - Back Exam Back exam: Present: normal inspection - Neurological Exam Neurological exam: Present: alert, oriented X3 - Psychiatric Psychiatric exam: Present: normal affect, normal mood - Skin Skin exam: Present: normal color, warm, dry Results - Labs CBC & BMP: 04/19/17 05:27 04/19/17 05:27 Lab Results: I have reviewed the past 24 hour labs
--- NOTE | 2017-04-19 08:06 | Nephrology Progress Note ---
Nephrology - PN: Subj Interval history: Patient feels poorly this morning. She complains of not having much of an appetite she denies vomiting. Review of systems -patient's having some frequency she denies any dysuria Physical exam general the patient chronically ill-appearing, she has swollen lower extremities Assessment/plan 1. Hypocalcemia-this patient's calcium has improved, I am going to decrease her calcium carbonate by mouth and will also decrease her calcitriol dose, her serum calcium corrects to around 9.5-10 mg/dL. 2. Acute renal failure this is resolved 3. Hypomagnesemia this is corrected 4. Volume overload-this patient's getting a little bit fluid up at this time, I am going to stop her IV fluids. Exam (PN)-Nephrology - Vital Signs Vital signs: Period Temp Pulse Resp BP Sys/Katz Pulse Ox Last 24 Hr 96.7 F-98.1 F 90-111 18-20 116-137/75-83 97-99 - Lab 04/19/17 05:27 04/19/17 05:27 Most recent lab results ABG pH 7.418 (7.35-7.45) 04/16/17 03:15 ABG pCO2 51.3 MM HG (35-48) H 04/16/17 03:15 ABG pO2 111.5 MM HG (80-95) H 04/16/17 03:15 ABG HCO3 32.4 MMOL/L (20-26) H 04/16/17 03:15 ABG O2 Saturation 97.6 % (95-100) 04/16/17 03:15 Calcium 8.5 MG/DL (8.5-10.1) D 04/19/17 05:27 Phosphorus 2.8 MG/DL (2.5-4.9) 04/19/17 05:27 Magnesium 1.9 MG/DL (1.8-2.4) 04/19/17 05:27 Assessment and Plan (1) Hypocalcemia Status: Acute Assessment and plan: This patient continues to have a low calcium after renal failure and severely decreased p.o. intake as well as diarrhea and vomiting. She has been getting some IV calcium gluconate as well as calcium carbonate by mouth. She has a low vitamin D level she also has a low albumin level making for a component of pseudo-hypocalcemia. I am going to increase her calcium carbonate replacement to 2000 mg 4 times a day given between meals and at bedtime. I will also start her on calcitriol the active form of vitamin D as with her recent renal injury she may not be converting the vitamin D to the active form. I will also check a albumin level tomorrow. Current Visit: Yes (2) Hypophosphatemia Status: Acute Assessment and plan: I think this is secondary to her decreased p.o. intake from her acute illness as well as her elevated PTH level that is resulting from her hypocalcemia. Current Visit: Yes (3) Hypoalbuminemia Status: Acute Current Visit: Yes (4) Fibromyalgia Status: Acute Current Visit: Yes (5) Hypokalemia Status: Acute Current Visit: Yes (6) Hypomagnesemia Status: Acute Assessment and plan: We will start her on some Slow-Mag Current Visit: Yes (7) Chronic obstructive pulmonary disease Status: Chronic Current Visit: Yes (8) Peripheral vascular disease Status: Chronic Current Visit: Yes (9) Acute renal failure Status: Resolved Assessment and plan: This seems to have resolved Current Visit: Yes
[2017-04-19] MEDS: levETIRAcetam 500 MG TABLET PO SCH ×2 (09:13→20:25)
[2017-04-19] MEDS: MAGNESIUM CHLORIDE 64 MG TABLET PO SCH ×3 (09:13→20:24)
[2017-04-19] MEDS: PANTOPRAZOLE 40 MG TABLET PO SCH ×2 (09:13→20:25)
[2017-04-19] MEDS: CALCIUM (CARBONATE) 500 MG TABLET PO SCH ×4 (09:13→20:24)
[2017-04-19] MEDS: CALCITRIOL 0.25 MCG CAPSULE PO SCH (09:13)
[2017-04-19] MEDS: CHOLECALCIFEROL 400 UNIT TABLET PO SCH ×3 (09:13→20:24)
[2017-04-19] MEDS: CLORAZEPATE 7.5 MG TABLET PO SCH ×2 (09:13→20:24)
[2017-04-19] MEDS: SUCRALFATE 1 GM/10 ML UDCUP PO SCH ×4 (09:14→20:24)
[2017-04-19] MEDS ORDERED: BISACODYL 5 MG TABLET PO ONE (12:00)
[2017-04-19] MEDS: LEVOFLOXACIN INJ 250 MG in PREMIX 1 EACH IV SCH (12:18)
[2017-04-19] MEDS ORDERED: POLYETHYLENE GLYCOL POWDER 255 GM BOTTLE PO ONE (13:00)
--- NOTE | 2017-04-19 14:01 | Hospitalist Progress Note ---
Hospitalist: Subjective Interval history: Patient notes abdominal bloating and diarrhea. She is eating and is tolerating her diet. She denies any n/v. Exam - Constitutional Vitals: Period Temp Pulse Resp BP Sys/Katz Pulse Ox Last 24 Hr 96.7 F-98.2 F 90-111 18-24 115-137/73-83 96-99 General appearance: no acute distress, morbidly obese - Head Head exam: Present: normal inspection - Eye Eye exam: Present: EOMI Pupils: Present: SEAN - Respiratory Respiratory exam: Present: clear to auscultation bilaterally. Absent: rales, rhonchi, wheezes - Cardiovascular Cardiovascular exam: Present: regular rate and rhythm. Absent: diastolic murmur , systolic murmur - GI/Abdominal GI/Abdominal exam: Present: normal bowel sounds, tenderness, soft. Absent: distended, guarding, rebound - Extremities Exam Extremities exam: Present: edema - Neurological Exam Neurological exam: Present: alert, oriented X3 - Psychiatric Psychiatric exam: Present: normal affect, normal mood, agitated Results - Labs CBC & BMP: 04/19/17 05:27 04/19/17 05:27 - Impressions 1. Diarrhea: c. diff negative; being followed by GI; noted plan for colo tomorrow 2. AFSHIN: resolved 3. Hypocalcemia: resolved 4. HyperPTH: scan 5. Thyroid nodule: scan 6. vitamin D deficiency: replete 7. Volume overload: IVFs have been stopped; may need lasix; monitor 8. Shock: from GIB; now resolved 9. GIB: h/h stable; monitor; colo tomorrow 10. ABLA s/p transfusion: HCT stable; monitor 11. COPD: stable; on bronchodilator therapy Plan: continue current therapy and as noted above Quality Measures - VTE Contraindication to Pharmacological VTE Prophylaxis: Active Bleeding
[2017-04-19] MEDS: SERTRALINE 25 MG TABLET PO SCH (20:24)
[2017-04-20] MEDS: ALBUTEROL/IPRATROPIUM 3 ML NEB RESP TX SCH ×4 (00:11→20:06)
[2017-04-20] MEDS: metroNIDAZOLE 500 MG TABLET PO SCH ×3 (03:15→22:56)
[2017-04-20] MEDS ORDERED: MAGNESIUM CITRATE 300 ML BOTTLE PO ONE ×2 (06:00→07:00)
[2017-04-20 07:45] LABS: Basophils % 0.3 % (0.0-0.8); Eosinophils # 0.1 10*3/uL (0.0-0.87); Eosinophils % 1.7 % (0.00-10.9); Hematocrit 35.7 VOL% (35.7-47.0); Hemoglobin 11.5 GM/DL (12.0-16.0); Immature Granulocytes Absolute 0.06 #; Lymphocytes % 17.8 % (21.3-54.2); Mean Corpuscular HGB Conc 32.2 GM/DL (32-36); Mean Corpuscular Hemoglobin 30 PG (27-34); Mean Corpuscular Volume 94.2 FL (87-102); Mean Platelet Volume 10.2 FL (9.6-12.0); Monocytes # 0.3 10*3/uL (0.11-0.8); Monocytes % 5.7 % (1.7-12.7); Neutrophils # 4.2 10*3/uL (1.4-7.4); Neutrophils % 73.5 % (38.7-73.9); Platelet Count 255 T/CUMM (130-400); Red Blood Count 3.79 MC/CUMM (3.8-5.5); Red Cell Distribution Width 15.9 % (9.3-17.3); White Blood Count 5.8 T/CUMM (4-12)
--- NOTE | 2017-04-20 07:52 | Nephrology Progress Note ---
Nephrology - PN: Subj Interval history: Patient continues to complain of pain she describes it as being all over like if she had the flu. Review of [id number] tolerated liquids yesterday Physical exam general patient is chronically ill-appearing, she has moderate swelling in her lower extremities Assessment/plan 1. Hypocalcemia-we will recheck a BMP tomorrow 2. Hypomagnesemia-we will recheck a magnesium tomorrow 3. Acute renal failure this is resolved 4. Diarrhea-patient is to have a colonoscopy today Exam (PN)-Nephrology - Vital Signs Vital signs: Period Temp Pulse Resp BP Sys/Katz Pulse Ox Last 24 Hr 97.4 F-98.7 F 86-119 18-24 115-142/82-98 96-100 - Lab 04/20/17 07:37 04/19/17 05:27 Most recent lab results ABG pH 7.418 (7.35-7.45) 04/16/17 03:15 ABG pCO2 51.3 MM HG (35-48) H 04/16/17 03:15 ABG pO2 111.5 MM HG (80-95) H 04/16/17 03:15 ABG HCO3 32.4 MMOL/L (20-26) H 04/16/17 03:15 ABG O2 Saturation 97.6 % (95-100) 04/16/17 03:15 Calcium 8.5 MG/DL (8.5-10.1) D 04/19/17 05:27 Phosphorus 2.8 MG/DL (2.5-4.9) 04/19/17 05:27 Magnesium 1.9 MG/DL (1.8-2.4) 04/19/17 05:27 Assessment and Plan (1) Hypocalcemia Status: Acute Assessment and plan: This patient continues to have a low calcium after renal failure and severely decreased p.o. intake as well as diarrhea and vomiting. She has been getting some IV calcium gluconate as well as calcium carbonate by mouth. She has a low vitamin D level she also has a low albumin level making for a component of pseudo-hypocalcemia. I am going to increase her calcium carbonate replacement to 2000 mg 4 times a day given between meals and at bedtime. I will also start her on calcitriol the active form of vitamin D as with her recent renal injury she may not be converting the vitamin D to the active form. I will also check a albumin level tomorrow. Current Visit: Yes (2) Hypophosphatemia Status: Acute Assessment and plan: I think this is secondary to her decreased p.o. intake from her acute illness as well as her elevated PTH level that is resulting from her hypocalcemia. Current Visit: Yes (3) Hypoalbuminemia Status: Acute Current Visit: Yes (4) Fibromyalgia Status: Acute Current Visit: Yes (5) Hypokalemia Status: Acute Current Visit: Yes (6) Hypomagnesemia Status: Acute Assessment and plan: We will start her on some Slow-Mag Current Visit: Yes (7) Chronic obstructive pulmonary disease Status: Chronic Current Visit: Yes (8) Peripheral vascular disease Status: Chronic Current Visit: Yes (9) Acute renal failure Status: Resolved Assessment and plan: This seems to have resolved Current Visit: Yes Specialty Discharge - Follow Up or Referrals Follow up with: Zach Gonzales MD [Physician] - (make follow up May 09 or )
[2017-04-20 08:29] LABS: Alanine Aminotransferase 12 U/L (13-56); Albumin 2.1 G/DL (3.4-5.0); Alkaline Phosphatase 82 U/L (45-117); Aspartate Amino Transferase 17 U/L (0-37); Bilirubin,Total < 0.39 MG/DL (0.2-1.0); Blood Urea Nitrogen 5 MG/DL (7-18); Calcium 7.3 MG/DL (8.5-10.1); Free T4 (Free Thyroxine) 1.73 NG/DL (0.76-1.46); Glucose 106 MG/DL (74-106); Magnesium 1.5 MG/DL (1.8-2.4); Potassium 4.1 MMOL/L (3.5-5.1); Sodium 143 MMOL/L (136-145); Total Protein 4.9 G/DL (6.4-8.3)
--- NOTE | 2017-04-20 12:49 | Hospitalist Progress Note ---
Hospitalist: Subjective Interval history: Patient had bowel prep for colonoscopy today. She note some diffuse crampy pain. She denies any n/v/sob/cp. Exam - Constitutional Vitals: Period Temp Pulse Resp BP Sys/Katz Pulse Ox Last 24 Hr 97.4 F-99.9 F 86-119 18-20 101-142/73-98 94-100 General appearance: mild distress, morbidly obese - Head Head exam: Present: normal inspection - Eye Eye exam: Present: EOMI Pupils: Present: SEAN - Respiratory Respiratory exam: Present: clear to auscultation bilaterally. Absent: rales, rhonchi, wheezes - Cardiovascular Cardiovascular exam: Present: regular rate and rhythm, tachycardia - GI/Abdominal GI/Abdominal exam: Present: normal bowel sounds, tenderness, soft (diffuse tenderness). Absent: distended, guarding, rebound - Extremities Exam Extremities exam: Present: edema - Neurological Exam Neurological exam: Present: alert, oriented X3 Results - Labs CBC & BMP: 04/20/17 07:37 04/20/17 07:37 - Impressions 1. Diarrhea: c. diff negative; being followed by GI; noted plan for colo today; on empiric levaquin/flagyl 2. AFSHIN: resolved 3. Hypocalcemia: corrected: 8.8; resolved; continue supplements 4. HyperPTH: level going down; outpatient evaluation 5. hypomg: replete; monitor 5. Thyroid nodule: results of thyroid scan pending 6. vitamin D deficiency: replete 7. Volume overload: resolving; IVFs stopped 8. Shock: from GIB; now resolved 9. GIB: h/h stable; monitor; colo tomorrow 10. ABLA s/p transfusion: HCT stable; monitor 11. COPD: stable; on bronchodilator therapy Plan: as noted above Quality Measures - VTE Contraindication to Pharmacological VTE Prophylaxis: Active Bleeding Specialty Discharge - Follow Up or Referrals Follow up with: Zach Gonzales MD [Physician] - (make follow up May 09 or )
[2017-04-20] MEDS ORDERED: PROPOFOL 200 MG/20 ML VIAL IV ONE (12:50)
[2017-04-20] MEDS ORDERED: LIDOCAINE 2% 5 ML VIAL ONE (12:50)
--- NOTE | 2017-04-20 13:16 | History and Physical Update ---
History and Physical Update - History and Physical H&P was reviewed, the patient examined and there: are no changes in the patients condition since last H&P was completed. - Physical Exam Mental Status: alert and oriented Heart: regular rate and rhythm Lung: clear to auscultation Abdomen: within normal limits Vitals: within normal limits
--- NOTE | 2017-04-20 13:16 | Anesthesia Post-Op ---
Anesthesia Post OP - Post Ansesthetic Evaluation Patient seen in post op: Yes Resp: within normal limits CV: within normal limits Mental: within normal limits Temp: within normal limits [id number]: within normal limits Nausea and Vomiting: within normal limits Pain: within normal limits
--- NOTE | 2017-04-20 13:22 | Operative Note ---
Date of procedure: 04/20/17 Pre-op diagnosis: Lower GI bleed Procedure: Procedure note: Colonoscopy with biopsies Physician: Dr. Zaire Andrade Brief clinical abstract: 52-year-old female is admitted with lower GI bleeding. She had abdominal pain which preceded this. Bleeding has subsided but she has had persistent lower abdominal pain. Endoscopic findings: After informed consent was obtained, the patient was placed in the left lateral decubitus position. Digital rectal exam was performed with no palpable abnormalities felt. Pediatric videocolonoscope was inserted into the rectum and advanced to the cecum without difficulty. Retroflex view within the cecum was performed back to the level of the hepatic flexure. The endoscope was advanced back to the cecum and on withdrawal colonic mucosa was carefully examined. Bowel prep was of good quality. Withdrawal time was over 6 minutes duration. No polyps were seen. No abnormalities were noted until the distal transverse colon was reached. Distal to this extending into the distal sigmoid colon were scattered colonic ulcers which were patchy in some areas but confluent/circumferential especially in the descending and sigmoid colon. There was quite a bit of subepithelial hemorrhage and surrounding edema associated with the ulcers and appearance was consistent with ischemic colitis. The endoscope was withdrawn in the rectum with retroflex view showing no abnormalities. The endoscope was removed and she appeared to tolerate the procedure well. Impression: #1 ischemic colitis - with extensive involvement as described #2 otherwise normal colonoscopy Plan: Continue symptomatic treatment for now. CT abdomen/pelvis if not improving in next 24-48 hours. Anesthesia: MAC Surgeon / Physician: Ulysses Andrade Estimated blood loss: minimal Specimens: other (Colonic ulcers) Condition: stable Disposition: post procedure unit Results - Labs CBC & BMP: 04/20/17 07:37 04/20/17 07:37 Discharge Plan - Discharge Medications No Action Lisinopril 40 mg PO QAM Levomilnacipran HCl [Fetzima] 40 mg PO QAM Furosemide Tab [Lasix Tab] 20 mg PO QAM Clorazepate [Tranxene] 3.75 mg PO BID traMADol TAB [Ultram] 50 mg PO BID PRN PRN Reason: Pain Aspirin 325 mg PO QAM Metoprolol Tartrate Tab [Lopressor Tab] 50 mg PO BID Pitavastatin Calcium [Livalo] 4 mg PO QPM levETIRAcetam [Levetiracetam] 500 mg PO BID Tiotropium Inhalation [Spiriva Handihaler] 18 mcg INH QAM Sertraline HCl 25 mg PO QAM Cilostazol 100 mg PO BID - Follow Up or Referral Follow Up: Zach Gonzales MD [Physician] - (make follow up May 09 or ) - Forms/Instructions
[2017-04-20] MEDS: MORPHINE 2 MG/1 ML SYRINGE IV PRN ×4 (14:37→23:02)
[2017-04-20] MEDS: SUCRALFATE 1 GM/10 ML UDCUP PO SCH ×4 (14:45→20:23)
[2017-04-20] MEDS: CALCITRIOL 0.25 MCG CAPSULE PO SCH (14:46)
[2017-04-20] MEDS: levETIRAcetam 500 MG TABLET PO SCH ×2 (14:46→20:24)
[2017-04-20] MEDS: MAGNESIUM CHLORIDE 64 MG TABLET PO SCH ×3 (14:47→20:24)
[2017-04-20] MEDS: CLORAZEPATE 7.5 MG TABLET PO SCH ×2 (14:47→20:23)
[2017-04-20] MEDS: CHOLECALCIFEROL 400 UNIT TABLET PO SCH ×4 (14:47→20:24)
[2017-04-20] MEDS: CALCIUM (CARBONATE) 500 MG TABLET PO SCH ×4 (14:47→20:24)
[2017-04-20] MEDS: PANTOPRAZOLE 40 MG TABLET PO SCH ×2 (14:47→20:23)
[2017-04-20] MEDS: SERTRALINE 25 MG TABLET PO SCH (20:23)
[2017-04-21] MEDS: ALBUTEROL/IPRATROPIUM 3 ML NEB RESP TX SCH ×4 (01:42→19:30)
[2017-04-21] MEDS: MORPHINE 2 MG/1 ML SYRINGE IV PRN ×6 (04:00→23:08)
[2017-04-21] MEDS: metroNIDAZOLE 500 MG TABLET PO SCH ×3 (06:09→22:17)
[2017-04-21 07:04] LABS: Basophils % 0.3 % (0.0-0.8); Eosinophils # 0.1 10*3/uL (0.0-0.87); Eosinophils % 2.1 % (0.00-10.9); Hematocrit 31.2 VOL% (35.7-47.0); Hemoglobin 10.1 GM/DL (12.0-16.0); Immature Granulocytes % 1.1 %; Immature Granulocytes Absolute 0.04 #; Lymphocytes # 0.7 10*3/uL (1.4-4.0); Lymphocytes % 18.7 % (21.3-54.2); Mean Corpuscular HGB Conc 32.4 GM/DL (32-36); Mean Corpuscular Hemoglobin 31 PG (27-34); Mean Corpuscular Volume 94.3 FL (87-102); Mean Platelet Volume 10.7 FL (9.6-12.0); Monocytes # 0.3 10*3/uL (0.11-0.8); Monocytes % 7.5 % (1.7-12.7); Neutrophils # 2.6 10*3/uL (1.4-7.4); Neutrophils % 70.3 % (38.7-73.9); Platelet Count 265 T/CUMM (130-400); Red Blood Count 3.31 MC/CUMM (3.8-5.5); Red Cell Distribution Width 15.8 % (9.3-17.3); White Blood Count 3.7 T/CUMM (4-12)
[2017-04-21 07:34] LABS: Calcium 7.3 MG/DL (8.5-10.1); Potassium 3.9 MMOL/L (3.5-5.1)
[2017-04-21 07:37] LABS: Bilirubin,Total 0.4 MG/DL (0.2-1.0); Calcium 7.3 MG/DL (8.5-10.1); Magnesium 1.5 MG/DL (1.8-2.4); Potassium 3.9 MMOL/L (3.5-5.1); Total Protein 4.4 G/DL (6.4-8.3)
--- NOTE | 2017-04-21 08:25 | Gastrointestinal Progress Note ---
Assessment and Plan (1) GI bleed Status: Acute Assessment and plan: 04/22-Continued abd pain, no reports of overt bleeding. Pathology report pending at this time. Continue to monitor at this time and consider repeat CT tomorrow if symptoms not improved. Plan and addendum to follow by Dr Andrade. 04/19-H&H holding stable at without overt bleeding. Continue complaints of abdominal discomfort, not improved since admission. Loose stools up to 6 daily. Plan for colonoscopy on tomorrow to further evaluate. Plan an addendum to follow Dr. Andrade. 04/18-H&H stable 06/21. Continue complaints of abdominal discomfort. No nausea vomiting. Poor appetite. Continue to monitor present time. Plan an addendum follow Dr. Andrade. 04/15-H&H remained stable at present time. No reports of overt bleeding. KUB shows ileus at this time. Continue to monitor present time. Hao-is off at this time. Plan an addendum follow Dr. Andrade. 04/14-no further reports of bleeding at this time. H&H is stable. Continue to monitor at present time. Continuing to require Hao-Synephrine. Plan an addendum to followed by Dr. Andrade. 04/13-onset of rectal bleeding with diarrhea stools times several days with lower abdominal cramping. On Pletal and aspirin therapy. Has been transfused 2 units packed red blood cells. Unable to locate endoscopy records. Monitor H& H. Clear liquid diet. Plan an addendum to followed by Dr. Andrade. Current Visit: Yes Gastroenterology - PN: Subj Interval history: CC: Abdominal pain Pt is seen, awake and alert, lying in bed. She states she is not feeling well today and did not sleep well last night. She states she is having continued abdominal pain at this time. She has had 2-3 loose stools since yesterday but denies any overt bleeding with this. Colonoscopy on yesterday noted to show extensive involvement of ischemic colitis with biopsy pending at this time. She has a poor appetite as well. Denies any nausea or vomiting. HH stable at 06/21. Abdomen is soft, nontender. ROS: Denies SOB or chest pain Exam (Progress Note) - Constitutional Vitals: Period Temp Pulse Resp BP Sys/Katz Pulse Ox Last 24 Hr 96.9 F-99.9 F 98-111 15-20 101-146/60-92 95-100 General appearance: normal weight, no acute distress - Head Head exam: Present: normal inspection, normocephalic - Eye Eye exam: Present: other (lids and conjunctiva unremarkable). Absent: scleral icterus - ENT ENT exam: Present: normal exam, normal oropharynx - Neck Neck exam: Present: normal inspection - Respiratory Respiratory exam: Present: clear to auscultation bilaterally. Absent: rales, rhonchi, wheezes - Cardiovascular Cardiovascular exam: Present: regular rate and rhythm. Absent: diastolic murmur , JVD, systolic murmur - GI/Abdominal GI/Abdominal exam: Present: normal bowel sounds, tenderness, soft. Absent: ascites, distended, mass, organomegaly - Extremities Exam Extremities exam: Present: normal inspection, full ROM - Back Exam Back exam: Present: normal inspection - Neurological Exam Neurological exam: Present: alert, oriented X3 - Psychiatric Psychiatric exam: Present: normal affect, normal mood - Skin Skin exam: Present: normal color, warm, dry Results - Labs CBC & BMP: 04/21/17 05:30 04/21/17 05:30 Lab Results: I have reviewed the past 24 hour labs Specialty Discharge - Follow Up or Referrals Follow up with: Zach Gonzales MD [Physician] - (make follow up May 09 or )
[2017-04-21] MEDS: CALCIUM (CARBONATE) 500 MG TABLET PO SCH ×4 (08:38→22:17)
[2017-04-21] MEDS: CHOLECALCIFEROL 400 UNIT TABLET PO SCH ×4 (08:39→22:17)
[2017-04-21] MEDS: CLORAZEPATE 7.5 MG TABLET PO SCH ×2 (08:39→22:16)
[2017-04-21] MEDS: POTASSIUM CHLORIDE 20 MEQ TABLET PO PRN (08:39)
[2017-04-21] MEDS: CALCITRIOL 0.25 MCG CAPSULE PO SCH (08:39)
[2017-04-21] MEDS: levETIRAcetam 500 MG TABLET PO SCH ×2 (08:39→22:17)
[2017-04-21] MEDS: PANTOPRAZOLE 40 MG TABLET PO SCH ×2 (08:40→22:17)
[2017-04-21] MEDS: SUCRALFATE 1 GM/10 ML UDCUP PO SCH ×4 (08:40→22:16)
[2017-04-21] MEDS: MAGNESIUM CHLORIDE 64 MG TABLET PO SCH ×3 (08:40→22:16)
--- NOTE | 2017-04-21 08:53 | Nuclear Medicine Report ---
History: Elevated parathyroid hormone Date: 04/20/2017 Study: Nuclear medicine parathyroid scan Comparison exam: No previous similar Following the IV administration of 20 mCi technetium 99m Cardiolite, planar images were obtained over the neck and chest at 5 minutes, 1 hour, 2 hour, and 4 hours. SPECT images were also obtained in 3 planes at 4 hours. There is no abnormal increased uptake over the neck and mediastinal region to suggest parathyroid adenoma. There is physiologic uptake by the salivary glands and thyroid gland Impression: No parathyroid adenoma activity is identified PROCEDURE INTERPRETED AT [facility] DEPARTMENT OF RADIOLOGY Final Report Signed by: Dr. Sidra Andrade
[2017-04-21] MEDS: MAGNESIUM SULF RIDER 2 GM in PREMIX 1 EACH IV PRN (09:03)
--- NOTE | 2017-04-21 10:47 | Nephrology Progress Note ---
Nephrology - PN: Subj Interval history: Patient continues to complain of pain all over and pain in her abdomen particular. She is tolerating p.o. intake without exactly patient and her pain. Review of systems pulmonary she denies shortness of breath Physical exam general the patient is chronically ill-appearing Assessment/plan 1. Hypocalcemia-this patient's calcium is at an acceptable level when her albumin of 2.0 is accounted for I will continue her present calcitriol dose and calcium supplementation 2. Hypomagnesemia-continue replacement 3. Acute renal failure this is resolved 4. Abdominal pain-this patient had "extensive" ischemic colitis found at colonoscopy. Management per GI medicine. Exam (PN)-Nephrology - Vital Signs Vital signs: Period Temp Pulse Resp BP Sys/Katz Pulse Ox Last 24 Hr 96.9 F-99.9 F 98-111 15-20 101-146/60-92 95-100 - Lab 04/21/17 05:30 04/21/17 05:30 Most recent lab results ABG pH 7.418 (7.35-7.45) 04/16/17 03:15 ABG pCO2 51.3 MM HG (35-48) H 04/16/17 03:15 ABG pO2 111.5 MM HG (80-95) H 04/16/17 03:15 ABG HCO3 32.4 MMOL/L (20-26) H 04/16/17 03:15 ABG O2 Saturation 97.6 % (95-100) 04/16/17 03:15 Calcium 7.3 MG/DL (8.5-10.1) L 04/21/17 05:30 Phosphorus 2.8 MG/DL (2.5-4.9) 04/19/17 05:27 Magnesium 1.5 MG/DL (1.8-2.4) L 04/21/17 05:30 Assessment and Plan (1) Hypocalcemia Status: Acute Assessment and plan: This patient continues to have a low calcium after renal failure and severely decreased p.o. intake as well as diarrhea and vomiting. She has been getting some IV calcium gluconate as well as calcium carbonate by mouth. She has a low vitamin D level she also has a low albumin level making for a component of pseudo-hypocalcemia. I am going to increase her calcium carbonate replacement to 2000 mg 4 times a day given between meals and at bedtime. I will also start her on calcitriol the active form of vitamin D as with her recent renal injury she may not be converting the vitamin D to the active form. I will also check a albumin level tomorrow. Current Visit: Yes (2) Hypophosphatemia Status: Acute Assessment and plan: I think this is secondary to her decreased p.o. intake from her acute illness as well as her elevated PTH level that is resulting from her hypocalcemia. Current Visit: Yes (3) Hypoalbuminemia Status: Acute Current Visit: Yes (4) Fibromyalgia Status: Acute Current Visit: Yes (5) Hypokalemia Status: Acute Current Visit: Yes (6) Hypomagnesemia Status: Acute Assessment and plan: We will start her on some Slow-Mag Current Visit: Yes (7) Chronic obstructive pulmonary disease Status: Chronic Current Visit: Yes (8) Peripheral vascular disease Status: Chronic Current Visit: Yes (9) Acute renal failure Status: Resolved Assessment and plan: This seems to have resolved Current Visit: Yes Specialty Discharge - Follow Up or Referrals Follow up with: Zach Gonzales MD [Physician] - (make follow up May 09 or )
[2017-04-21] MEDS: LEVOFLOXACIN INJ 250 MG in PREMIX 1 EACH IV SCH (11:45)
--- NOTE | 2017-04-21 11:50 | Hospitalist Progress Note ---
Hospitalist: Subjective Interval history: 52-year-old white female was admitted with episodes of abdominal pain associated with nausea and vomiting and rectal bleeding was found to have extensive colonic ischemic colitis on colonoscopy. She states that she still has abdominal pain. She is on clear liquid diet. Denies any further rectal bleeding. Exam - Constitutional Vitals: Period Temp Pulse Resp BP Sys/Katz Pulse Ox Last 24 Hr 96.9 F-99.9 F 98-111 15-20 101-146/60-92 95-100 Exam: General: No Acute Distress HEENT: Normocephalic, atraumatic, Extra ocular movements intact Neck: Supple, No JVD Chest: Clear to auscultation B/L CV: S1 + S2 audible without murmur, gallop or rub Abd: soft, abdominal tenderness +, BS + Ext: No edema Skin: No purpura, bruising or rash Rheumatologic: No Joint deformities Neurologic: Strength 5/5 all extremities, no gross sensory deficits Results - Labs CBC & BMP: 04/21/17 05:30 04/21/17 05:30 - Impressions Assessment and Plan Lower GI bleed/Abd Pain/Ischemic colitis Status: Acute Assessment and plan: Continue liquid diet and Flagyl and Levaquin. Follow-up pending pathology reports. Continue IV morphine as needed 1 mg every 3 hourly. 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 qd. She is also on cholecalciferol 400 units p.o. 3 times daily Current Visit: Yes Hypophosphatemia Status: Acute Assessment and plan: I think this is secondary to her decreased p.o. intake from her acute illness as well as her elevated PTH level that is resulting from her hypocalcemia. Current Visit: Yes Hypoalbuminemia/moderate protein calorie malnutrition Status: Acute Current Visit: Yes Fibromyalgia Status: Acute Current Visit: Yes Hypokalemia Status: Acute Current Visit: Yes This has improved with scheduled potassium Hypomagnesemia Status: Acute Assessment and plan: Cont Slow-Mag 64 mg PO TID Current Visit: Yes Chronic obstructive pulmonary disease Status: Chronic Current Visit: Yes Peripheral vascular disease Status: Chronic Current Visit: Yes Acute renal failure Status: Resolved Assessment and plan: Resolved Current Visit: Yes Quality Measures - VTE Contraindication to Pharmacological VTE Prophylaxis: Active Bleeding Specialty Discharge - Follow Up or Referrals Follow up with: Zach Gonzales MD [Physician] - (make follow up May 09 or )
--- NOTE | 2017-04-21 19:22 | Pathology Report from [facility] ---
[facility] ACCESSION # : [id number] PATIENT NAME : Sarai Mendoza ORDERING DR : JEFFY GONZALES MD CLINICAL HX: Abdominal pain - Anemia POST-OP DX: Ischemic colitis ? Colon ulceration SPECIMEN INFO: Colon ulceration biopsy GROSS DESCRIPTION: The specimen is received in formalin labeled with the patients name and consists of a 0.8 x 0.5 cm aggregate of finley tissue. Submitted in one cassette. DIAGNOSIS FOR SARAI MENDOZA: COLON ULCERATION, BIOPSY: Benign colonic mucosa with reactive changes and superficial ulceration and necrosis, consistent with ischemic colitis. COLLECTED DATE: 04/20/2017 [facility] REPORT DATE: 04/21/2017 ELECTRONICALLY SIGNED BY: Tash Navas M.D. 04/21/2017 - 14:44:40 [facility] CENTERElmo
[2017-04-21] MEDS: SERTRALINE 25 MG TABLET PO SCH (22:17)
[2017-04-22] MEDS: ALBUTEROL/IPRATROPIUM 3 ML NEB RESP TX SCH ×4 (00:21→19:16)
[2017-04-22] MEDS: MORPHINE 2 MG/1 ML SYRINGE IV PRN ×6 (04:48→21:08)
[2017-04-22] MEDS: metroNIDAZOLE 500 MG TABLET PO SCH ×2 (06:40→22:01)
[2017-04-22] MEDS: SUCRALFATE 1 GM/10 ML UDCUP PO SCH ×4 (06:40→20:44)
--- NOTE | 2017-04-22 07:31 | Nephrology Progress Note ---
Nephrology - PN: Subj Interval history: Patient denies shortness of breath. Review of systems GI-her abdominal discomfort is some improved today Physical exam general patient is chronically ill-appearing, she is in no acute distress however Assessment/plan 1. Hypocalcemia-this is improved with her current therapy, her calcium level corrects to normal when her low albumin status accounted for 2. Hypomagnesemia continue p.o. replacement with Slow-Mag 3. Acute renal failure-this is resolved 4. Hypokalemia this is resolved 5. Hyperparathyroidism-I believe this is secondary to her acute illness and associated chemistry abnormalities, her parathyroid scan was unremarkable for an adenoma. Page nephrology if needed over the holiday. Exam (PN)-Nephrology - Vital Signs Vital signs: Period Temp Pulse Resp BP Sys/Katz Pulse Ox Last 24 Hr 97.8 F-98.3 F 85-106 16-20 109-136/73-96 94-98 - Lab 04/21/17 05:30 04/21/17 05:30 Most recent lab results ABG pH 7.418 (7.35-7.45) 04/16/17 03:15 ABG pCO2 51.3 MM HG (35-48) H 04/16/17 03:15 ABG pO2 111.5 MM HG (80-95) H 04/16/17 03:15 ABG HCO3 32.4 MMOL/L (20-26) H 04/16/17 03:15 ABG O2 Saturation 97.6 % (95-100) 04/16/17 03:15 Calcium 7.3 MG/DL (8.5-10.1) L 04/21/17 05:30 Phosphorus 2.8 MG/DL (2.5-4.9) 04/19/17 05:27 Magnesium 1.5 MG/DL (1.8-2.4) L 04/21/17 05:30 Assessment and Plan (1) Hypocalcemia Status: Acute Assessment and plan: This patient continues to have a low calcium after renal failure and severely decreased p.o. intake as well as diarrhea and vomiting. She has been getting some IV calcium gluconate as well as calcium carbonate by mouth. She has a low vitamin D level she also has a low albumin level making for a component of pseudo-hypocalcemia. I am going to increase her calcium carbonate replacement to 2000 mg 4 times a day given between meals and at bedtime. I will also start her on calcitriol the active form of vitamin D as with her recent renal injury she may not be converting the vitamin D to the active form. I will also check a albumin level tomorrow. Current Visit: Yes (2) Hypophosphatemia Status: Acute Assessment and plan: I think this is secondary to her decreased p.o. intake from her acute illness as well as her elevated PTH level that is resulting from her hypocalcemia. Current Visit: Yes (3) Hypoalbuminemia Status: Acute Current Visit: Yes (4) Fibromyalgia Status: Acute Current Visit: Yes (5) Hypokalemia Status: Acute Current Visit: Yes (6) Hypomagnesemia Status: Acute Assessment and plan: We will start her on some Slow-Mag Current Visit: Yes (7) Chronic obstructive pulmonary disease Status: Chronic Current Visit: Yes (8) Peripheral vascular disease Status: Chronic Current Visit: Yes (9) Acute renal failure Status: Resolved Assessment and plan: This seems to have resolved Current Visit: Yes Specialty Discharge - Follow Up or Referrals Follow up with: Zach Gonzales MD [Physician] - (make follow up May 09 or )
--- NOTE | 2017-04-22 08:36 | Gastrointestinal Progress Note ---
Assessment and Plan (1) GI bleed Status: Acute Assessment and plan: 04/22-No changes in pain, no overt bleeding. Pathology report noted as below consistent with ischemic colitis. Will obtain CT of abdomen with contrast today for further evaluation. Plan and addendum to follow by Dr Andrade. 04/21-Continued abd pain, no reports of overt bleeding. Pathology report pending at this time. Continue to monitor at this time and consider repeat CT tomorrow if symptoms not improved. Plan and addendum to follow by Dr Andrade. 04/19-H&H holding stable at without overt bleeding. Continue complaints of abdominal discomfort, not improved since admission. Loose stools up to 6 daily. Plan for colonoscopy on tomorrow to further evaluate. Plan an addendum to follow Dr. Andrade. 04/18-H&H stable 06/21. Continue complaints of abdominal discomfort. No nausea vomiting. Poor appetite. Continue to monitor present time. Plan an addendum follow Dr. Andrade. 04/15-H&H remained stable at present time. No reports of overt bleeding. KUB shows ileus at this time. Continue to monitor present time. Hao-is off at this time. Plan an addendum follow Dr. Andrade. 04/14-no further reports of bleeding at this time. H&H is stable. Continue to monitor at present time. Continuing to require Hao-Synephrine. Plan an addendum to followed by Dr. Andrade. 04/13-onset of rectal bleeding with diarrhea stools times several days with lower abdominal cramping. On Pletal and aspirin therapy. Has been transfused 2 units packed red blood cells. Unable to locate endoscopy records. Monitor H& H. Clear liquid diet. Plan an addendum to followed by Dr. Andrade. Current Visit: Yes Gastroenterology - PN: Subj Interval history: CC: GI bleed, abd pain Pt is seen, awake and alert, with family at bedside. She seems to have a flat effect today. She states the pain is not improved and no change from admission. She reports having some loose stools but unable to recall how many. Denies any overt bleeding with this. She has a poor appetite as well. Abdomen is soft, tender to palpation. Pathology report returned showing consistent findings with ischemic colitis. No repeat labs noted for today. Nursing staff states she is continuing to require regular pain medication with her abdominal pain. ROS: Denies SOB or chest pain Exam (Progress Note) - Constitutional Vitals: Period Temp Pulse Resp BP Sys/Katz Pulse Ox Last 24 Hr 97.8 F-98.7 F 85-106 16-20 109-136/73-96 94-98 General appearance: normal weight, no acute distress - Head Head exam: Present: normal inspection, normocephalic - Eye Eye exam: Present: other (lids and conjunctiva unremarkable). Absent: scleral icterus - ENT ENT exam: Present: normal exam, normal oropharynx - Neck Neck exam: Present: normal inspection - Respiratory Respiratory exam: Present: clear to auscultation bilaterally. Absent: rales, rhonchi, wheezes - Cardiovascular Cardiovascular exam: Present: regular rate and rhythm. Absent: diastolic murmur , JVD, systolic murmur - GI/Abdominal GI/Abdominal exam: Present: normal bowel sounds, soft. Absent: ascites, distended, mass, organomegaly, tenderness - Extremities Exam Extremities exam: Present: normal inspection, full ROM - Back Exam Back exam: Present: normal inspection - Neurological Exam Neurological exam: Present: alert, oriented X3 - Psychiatric Psychiatric exam: Present: normal affect, normal mood - Skin Skin exam: Present: normal color, warm, dry Results - Labs CBC & BMP: 04/21/17 05:30 04/21/17 05:30 Lab Results: I have reviewed the past 24 hour labs Specialty Discharge - Follow Up or Referrals Follow up with: aZch Gonzales MD [Physician] - (make follow up May 09 or )
[2017-04-22] MEDS: CLORAZEPATE 7.5 MG TABLET PO SCH ×2 (14:17→20:44)
[2017-04-22] MEDS: CALCITRIOL 0.25 MCG CAPSULE PO SCH (14:18)
[2017-04-22] MEDS: MAGNESIUM CHLORIDE 64 MG TABLET PO SCH ×3 (14:18→20:43)
[2017-04-22] MEDS: levETIRAcetam 500 MG TABLET PO SCH ×2 (14:19→20:44)
[2017-04-22] MEDS: CHOLECALCIFEROL 400 UNIT TABLET PO SCH ×3 (14:19→20:45)
[2017-04-22] MEDS: CALCIUM (CARBONATE) 500 MG TABLET PO SCH ×4 (14:19→20:44)
[2017-04-22] MEDS: PANTOPRAZOLE 40 MG TABLET PO SCH ×2 (14:21→20:44)
--- NOTE | 2017-04-22 14:58 | CT Report ---
Referring physician: Katerin Mcrae MD EXAM: CT abdomen and pelvis with contrast DATE: 04/22/2017 COMPARISON: 03/22/2017 REASON: Generalized abdominal pain TECHNIQUE: Axial images of the abdomen and pelvis were obtained after administration of 100 cc of Omnipaque 350 IV contrast. Oral contrast was also administered. Coronal and sagittal reformatted images were also provided. Total DLP is 1522.90 mGy*cm. FINDINGS: Progressive atelectasis at the lung bases with consolidation especially in the lower lobes. Cardiac fat pads are noted. Fatty infiltration of the liver which is normal in size with no masses or dilated ducts in patient with prior cholecystectomy. The spleen, pancreas adrenal glands, and kidneys are stable in appearance with no renal or ureteral calculi. Calcification in the wall of the nondilated abdominal aorta with atheromatous plaque formation and no high-grade stenoses. No significant change in the size of the adjacent nodes. No oral contrast in the stomach. No significant dilatation of the small bowel. Progressive thickening of the wall of the colon, especially the left colon. There is associated pericolonic fluid and soft tissue stranding but no free air. No evidence of diverticulitis, or appendicitis with prior hysterectomy. Right femoral venous catheter projecting in the right iliac vein location. No definite urinary bladder pathology is identified. Degenerative changes are noted. Increased fluid in the soft tissues. IMPRESSION: Interval development of significant colitis especially in the left colon with pericolonic fluid and soft tissue stranding. Minimal free fluid in the pelvis with no free air. Anasarca. Prior hysterectomy and cholecystectomy. Right femoral venous catheter. Fatty infiltration of liver with cardiac fat pads. The CT exam was performed using one or more of the following dose reduction techniques: Automated exposure control and adjustment of the mA and/or kV according to patient size. PROCEDURE INTERPRETED AT [facility] DEPARTMENT OF RADIOLOGY Final Report Signed by: Dr. Lula Del Castillo
--- NOTE | 2017-04-22 16:39 | Hospitalist Progress Note ---
Hospitalist: Subjective Interval history: 52-year-old female with abdominal pain and colitis. She reports abdominal pain Exam - Constitutional Vitals: Period Temp Pulse Resp BP Sys/Katz Pulse Ox Last 24 Hr 97.9 F-98.7 F 85-110 16-20 109-144/73-98 94-99 Exam: General: No Acute Distress HEENT: Normocephalic, atraumatic, Extra ocular movements intact Neck: Supple, No JVD Chest: Clear to auscultation B/L CV: S1 + S2 audible without murmur, gallop or rub Abd: soft, abdominal tenderness +, BS + Ext: No edema Skin: No purpura, bruising or rash Rheumatologic: No Joint deformities Neurologic: Strength 5/5 all extremities, no gross sensory deficits Results - Labs CBC & BMP: 04/21/17 05:30 04/21/17 05:30 - Impressions Assessment and Plan Lower GI bleed/Abd Pain/Ischemic colitis Status: Acute Assessment and plan: She has no further GI bleed,continue liquid diet and Flagyl and Levaquin. CT scan of the abdomen and pelvis showed severe colitis,follow-up pending pathology reports. Continue IV morphine as needed 1 mg every 3 hourly. 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 qd. She is also on cholecalciferol 400 units p.o. 3 times daily Current Visit: Yes Hypophosphatemia Status: Acute Assessment and plan: I think this is secondary to her decreased p.o. intake from her acute illness as well as her elevated PTH level that is resulting from her hypocalcemia. Current Visit: Yes Hypoalbuminemia/moderate protein calorie malnutrition Status: Acute Current Visit: Yes Fibromyalgia Status: Acute Current Visit: Yes Hypokalemia Status: Acute Current Visit: Yes This has improved with scheduled potassium Hypomagnesemia Status: Acute Assessment and plan: Cont Slow-Mag 64 mg PO TID Current Visit: Yes Chronic obstructive pulmonary disease Status: Chronic Current Visit: Yes Peripheral vascular disease Status: Chronic Current Visit: Yes Acute renal failure Status: Resolved Assessment and plan: Resolved Current Visit: Yes Quality Measures - VTE Contraindication to Pharmacological VTE Prophylaxis: Active Bleeding Specialty Discharge - Follow Up or Referrals Follow up with: Zach Gonzales MD [Physician] - (make follow up May 09 or )
[2017-04-22] MEDS: SERTRALINE 25 MG TABLET PO SCH (20:44)
[2017-04-23] MEDS: ALBUTEROL/IPRATROPIUM 3 ML NEB RESP TX SCH ×4 (00:37→19:43)
[2017-04-23] MEDS: MORPHINE 2 MG/1 ML SYRINGE IV PRN ×7 (00:57→22:09)
[2017-04-23] MEDS: metroNIDAZOLE 500 MG TABLET PO SCH ×3 (05:39→22:12)
[2017-04-23] MEDS: CALCIUM (CARBONATE) 500 MG TABLET PO SCH ×4 (08:59→21:22)
[2017-04-23] MEDS: CALCITRIOL 0.25 MCG CAPSULE PO SCH (08:59)
[2017-04-23] MEDS: SUCRALFATE 1 GM/10 ML UDCUP PO SCH ×4 (08:59→21:21)
[2017-04-23] MEDS: CLORAZEPATE 7.5 MG TABLET PO SCH ×2 (09:00→21:22)
[2017-04-23] MEDS: CHOLECALCIFEROL 400 UNIT TABLET PO SCH ×3 (09:00→21:22)
[2017-04-23] MEDS: levETIRAcetam 500 MG TABLET PO SCH ×2 (09:00→21:22)
[2017-04-23] MEDS: MAGNESIUM CHLORIDE 64 MG TABLET PO SCH ×3 (09:00→21:22)
[2017-04-23] MEDS: PANTOPRAZOLE 40 MG TABLET PO SCH ×2 (09:03→21:22)
[2017-04-23] MEDS: LEVOFLOXACIN INJ 250 MG in PREMIX 1 EACH IV SCH (12:08)
--- NOTE | 2017-04-23 17:09 | Hospitalist Progress Note ---
Hospitalist: Subjective Interval history: 52-year-old female with abdominal pain and colitis. She reports abdominal pain Exam - Constitutional Vitals: Period Temp Pulse Resp BP Sys/Katz Pulse Ox Last 24 Hr 98.3 F-98.6 F 89-106 17-20 98-125/68-84 94-100 Exam: General: No Acute Distress HEENT: Normocephalic, atraumatic, Extra ocular movements intact Neck: Supple, No JVD Chest: Clear to auscultation B/L CV: S1 + S2 audible without murmur, gallop or rub Abd: soft, abdominal tenderness +, BS + Ext: No edema Skin: No purpura, bruising or rash Rheumatologic: No Joint deformities Neurologic: Strength 5/5 all extremities, no gross sensory deficits Results - Labs CBC & BMP: 04/21/17 05:30 04/21/17 05:30 - Impressions Assessment and Plan Lower GI bleed/Abd Pain/Ischemic colitis Status: Acute Assessment and plan: She has no further GI bleed,continue liquid diet and Flagyl and Levaquin. CT scan of the abdomen and pelvis showed severe colitis,follow-up pending pathology reports. Continue IV morphine as needed 1 mg every 3 hourly. 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 qd. She is also on cholecalciferol 400 units p.o. 3 times daily Current Visit: Yes Hypophosphatemia Status: Acute Assessment and plan: I think this is secondary to her decreased p.o. intake from her acute illness as well as her elevated PTH level that is resulting from her hypocalcemia. Current Visit: Yes Hypoalbuminemia/moderate protein calorie malnutrition Status: Acute Current Visit: Yes Fibromyalgia Status: Acute Current Visit: Yes Hypokalemia Status: Acute Current Visit: Yes This has improved with scheduled potassium Hypomagnesemia Status: Acute Assessment and plan: Cont Slow-Mag 64 mg PO TID Current Visit: Yes Chronic obstructive pulmonary disease Status: Chronic Current Visit: Yes Peripheral vascular disease Status: Chronic Current Visit: Yes Acute renal failure Status: Resolved Assessment and plan: Resolved Current Visit: Yes Thyroid nodule Status: Chronic Assessment and plan: Indeterminant 11 mm solid nodule in the right isthmus. She will need to follow up with her primary care physician as an outpatient for this problem Current Visit: Yes Quality Measures - VTE Contraindication to Pharmacological VTE Prophylaxis: Active Bleeding Specialty Discharge - Follow Up or Referrals Follow up with: Zach Gonzales MD [Physician] - (make follow up May 09 or )
--- NOTE | 2017-04-23 20:54 | Gastrointestinal Progress Note ---
Assessment and Plan - Time spent with patient Time spent with patient: Greater than 30 minutes (1) Ischemic colitis Status: Acute Current Visit: Yes (2) Abdominal pain Status: Acute Current Visit: Yes (3) Pneumonia Status: Acute Assessment and plan: PLEASE NOTE -- automatic citation of patient information is unavoidable in this electronic note. I have made a reasonable effort to review the information cited , but it is not a part of my evaluation, impression, or recommendation unless specifically discussed in the dictated text that follows. As well, voice recognition software was used in the creation of this clinical note. Reasonable effort was made to identify and correct gross errors. Despite proofreading, errors in web feeder may be present, including nonsense verbiage at times. If you encounter such an error, please contact me at for discussion and correction. -- Jose Manuel Chief complaint: ischemic colitis 24 hour events: CT scan completed, patient afebrile overnight, persistent tachycardia with stable blood pressure 120s over 60s Subjective: Mrs. Sarai Mendoza states that her abdominal pain is the same, has been tolerating diet, although has no appetite. Denies any hematochezia. States that her stools are soft and loose Medications: Reviewed with no gastrointestinal related changes noted REVIEW OF SYSTEMS: Complete other review of systems negative except as noted in the HPI PHYSICAL EXAMINATION: CONSTITUTIONAL: Vital signs reviewed as documented above. In no acute distress. Nontoxic-appearing. EYES: Anicteric conjunctiva. Extra-ocular movements are intact and symmetric. EARS: Able to hear speech at conversational volume level, no external trauma/ masses. LUNGS: No increased work of breathing or accessory muscle use. GI/ABDOMEN: Obese abdomen, soft, diffusely tender to palpation, no rebound tenderness, nondistended, no rigidity, soft. No palpable mass. No appreciable hepatosplenomegaly. SKIN: No rash on face, arms, or hands. No palpable lesions MUSCULOSKELETAL: Laying in bed with normal movement. Muscle tone appears normal without any abnormal movements. PSYCH: Normal affect. Alert and oriented to person, place, and time. Laboratory: Personally reviewed Pathology of colitis consistent with ischemia CBC: 3.7/10 0.1/265 Creatinine 0.5 Magnesium 1.5, calcium 7.3, albumin 2.0 Vitamin D 7.4 PTH 341 Radiology: Personally reviewed reports and images with no pertinent changes unless noted here: CT abdomen and pelvis with contrast from April 22, 2017 Progressive atelectasis of the lung bases with consolidation especially in the lower lobes Fatty infiltration of the liver, no masses or dilated ducts, prior cholecystectomy -Calcification in the wall of the nondilated abdominal aorta with atheromatous plaque formation and NO high-grade stenosis No significant change in size of the adjacent nodes No contrast in the stomach, no dilation of the small bowel Progressive thickening of the wall of the colon especially the left colon Associated pericolonic fluid and soft tissue stranding but no free air No diverticulitis, appendicitis, but prior hysterectomy Minimal free fluid in the pelvis with no free air. Anasarca. Right femoral venous catheter Assessments: #Ischemic colitis, common watershed area in the left colon. Repeat CT scan done without significant changes on 04/22/17. No high-grade stenosis noted on CT scan of abdominal vasculature. #Electrolyte derangementsmultiple, some may be related to colitis and GI tract losses, particularly hypomagnesemia #Pneumonia: seen incidentally on CT abdomen. Patient without chest pain, fevers. Likely exacerbated by patients increased abdominal pain with deep breathing and apparent atelectasis. Has been on SUBtherapeutic levofloxacin for 7 days. #Other specified counseling -- The patient was seen for greater than 30 minutes. The patient was counseled for greater than 50% of this time regarding differential diagnosis, likely diagnosis, diagnostic and therapeutic alternatives, risks/benefits/alternatives of medications and procedures, and plan of care generally. The patient expressed understanding and wishes to proceed. Recommendations: -Reasonable to continue antibiotics until clinical improvement due to severity, total course 7-14 days, transition to oral Cipro and Flagyl when tolerated -check C.diff now, ordered with persistent colitis >7 days antibiotics -For any worsening pain or peritoneal signs, recommend upright abdominal x-ray to check for perforation -primary team to finalized pneumonia mgt, SUBTHERAPEUTIC levofloxacin, and flagyl not likely to treat. -patient encouraged to increase deep breathing 10x per hour minimum -Pain management per primary team, added scheduled Tylenol 1000mg Q8H to avoid increase in narcotics for now -Recommend aggressive magnesium replacement, as patient is likely to continue to lose significant magnesium and loose stools, would give 2 g IV 2, and recheck this afternoon and replace again as needed. Take care with oral magnesium replacement, as this can induce diarrhea. -Primary service to address hypovitaminosis D, hypocalcemia with appropriately high PTH, as well as high TSH, high free T4 in the setting of 11mm nodule in right isthmus. Lashon Richard MD, MPH [employer]FF [employer] Current Visit: Yes Exam (Progress Note) - Constitutional Vitals: Period Temp Pulse Resp BP Sys/Katz Pulse Ox Last 24 Hr 98.3 F-98.6 F 89-106 17-20 98-125/62-84 95-100 Results - Labs CBC & BMP: 04/21/17 05:30 04/21/17 05:30 Specialty Discharge - Follow Up or Referrals Follow up with: Zach Gonzales MD [Physician] - (make follow up May 09 or )
[2017-04-23] MEDS: SERTRALINE 25 MG TABLET PO SCH (21:22)
[2017-04-23] MEDS: ACETAMINOPHEN 500 MG TABLET PO SCH (22:12)
[2017-04-24] MEDS: ALBUTEROL/IPRATROPIUM 3 ML NEB RESP TX SCH ×4 (00:28→19:49)
[2017-04-24] MEDS: MORPHINE 2 MG/1 ML SYRINGE IV PRN ×5 (00:53→21:32)
[2017-04-24] MEDS: metroNIDAZOLE 500 MG TABLET PO SCH ×3 (06:04→21:27)
[2017-04-24] MEDS: levETIRAcetam 500 MG TABLET PO SCH ×2 (09:16→21:25)
[2017-04-24] MEDS: CLORAZEPATE 7.5 MG TABLET PO SCH ×2 (09:16→21:25)
[2017-04-24] MEDS: MAGNESIUM CHLORIDE 64 MG TABLET PO SCH ×3 (09:16→21:28)
[2017-04-24] MEDS: ACETAMINOPHEN 500 MG TABLET PO SCH ×3 (09:17→21:24)
[2017-04-24] MEDS: CALCITRIOL 0.25 MCG CAPSULE PO SCH (09:17)
[2017-04-24] MEDS: CHOLECALCIFEROL 400 UNIT TABLET PO SCH ×3 (09:17→21:24)
[2017-04-24] MEDS: PANTOPRAZOLE 40 MG TABLET PO SCH ×2 (09:17→21:25)
[2017-04-24] MEDS: CALCIUM (CARBONATE) 500 MG TABLET PO SCH ×4 (09:17→21:25)
[2017-04-24] MEDS: SUCRALFATE 1 GM/10 ML UDCUP PO SCH ×4 (09:18→21:24)
[2017-04-24] MEDS: MAGNESIUM SULF RIDER 2 GM in PREMIX 1 EACH IV PRN ×2 (09:20→10:57)
[2017-04-24 15:33] LABS: Basophils % 0.5 % (0.0-0.8); Eosinophils # 0.1 10*3/uL (0.0-0.87); Eosinophils % 1.3 % (0.00-10.9); Hematocrit 31.9 VOL% (35.7-47.0); Hemoglobin 10.6 GM/DL (12.0-16.0); Immature Granulocytes % 0.5 %; Immature Granulocytes Absolute 0.02 #; Lymphocytes # 1.4 10*3/uL (1.4-4.0); Lymphocytes % 36.9 % (21.3-54.2); Mean Corpuscular HGB Conc 33.2 GM/DL (32-36); Mean Corpuscular Hemoglobin 31 PG (27-34); Mean Corpuscular Volume 94.1 FL (87-102); Mean Platelet Volume 10.3 FL (9.6-12.0); Monocytes # 0.4 10*3/uL (0.11-0.8); Monocytes % 9.6 % (1.7-12.7); Neutrophils % 51.2 % (38.7-73.9); Platelet Count 356 T/CUMM (130-400); Red Blood Count 3.39 MC/CUMM (3.8-5.5); Red Cell Distribution Width 15.8 % (9.3-17.3); White Blood Count 3.9 T/CUMM (4-12)
[2017-04-24 15:59] LABS: Calcium 8.3 MG/DL (8.5-10.1); Magnesium 2.9 MG/DL (1.8-2.4); Osmolality,Calculated 279.3 MOS/KG (273-304)
--- NOTE | 2017-04-24 17:00 | Hospitalist Progress Note ---
Hospitalist: Subjective Interval history: 52-year-old female with abdominal pain and colitis. She reports slowly improving abdominal pain Exam - Constitutional Vitals: Period Temp Pulse Resp BP Sys/Katz Pulse Ox Last 24 Hr 96.7 F-98.1 F 82-111 18-20 113-134/68-83 96-99 Exam: General: No Acute Distress HEENT: Normocephalic, atraumatic, Extra ocular movements intact Neck: Supple, No JVD Chest: Clear to auscultation B/L CV: S1 + S2 audible without murmur, gallop or rub Abd: soft, abdominal tenderness +, BS + Ext: No edema Skin: No purpura, bruising or rash Rheumatologic: No Joint deformities Neurologic: Strength 5/5 all extremities, no gross sensory deficits Results - Labs CBC & BMP: 04/24/17 15:04 04/24/17 15:04 - Impressions Assessment and Plan Lower GI bleed/Abd Pain/Ischemic colitis Status: Acute Assessment and plan: She has no further GI bleed,continue liquid diet and Flagyl and Levaquin. CT scan of the abdomen and pelvis showed severe colitis,follow-up pending pathology reports. Continue IV morphine as needed 1 mg every 3 hourly. 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 qd. She is also on cholecalciferol 400 units p.o. 3 times daily Current Visit: Yes Hypophosphatemia Status: Acute Assessment and plan: I think this is secondary to her decreased p.o. intake from her acute illness as well as her elevated PTH level that is resulting from her hypocalcemia. Current Visit: Yes Hypoalbuminemia/moderate protein calorie malnutrition Status: Acute Current Visit: Yes Fibromyalgia Status: Acute Current Visit: Yes Hypokalemia Status: Acute Current Visit: Yes This has improved with scheduled potassium Hypomagnesemia Status: Acute Assessment and plan: Cont Slow-Mag 64 mg PO TID Current Visit: Yes Chronic obstructive pulmonary disease Status: Chronic Current Visit: Yes Peripheral vascular disease Status: Chronic Current Visit: Yes Acute renal failure Status: Resolved Assessment and plan: Resolved Current Visit: Yes Thyroid nodule Status: Chronic Assessment and plan: Indeterminant 11 mm solid nodule in the right isthmus. She will need to follow up with her primary care physician as an outpatient for this problem Current Visit: Yes Quality Measures - VTE Contraindication to Pharmacological VTE Prophylaxis: Active Bleeding Specialty Discharge - Follow Up or Referrals Follow up with: Zach Gonzales MD [Physician] - (make follow up May 09 or )
--- NOTE | 2017-04-24 17:59 | Gastrointestinal Progress Note ---
Assessment and Plan (1) Ischemic colitis Status: Acute Current Visit: Yes (2) Abdominal pain Status: Acute Current Visit: Yes (3) Pneumonia Status: Acute Assessment and plan: PLEASE NOTE -- automatic citation of patient information is unavoidable in this electronic note. I have made a reasonable effort to review the information cited , but it is not a part of my evaluation, impression, or recommendation unless specifically discussed in the dictated text that follows. As well, voice recognition software was used in the creation of this clinical note. Reasonable effort was made to identify and correct gross errors. Despite proofreading, errors in gas welder may be present, including nonsense verbiage at times. If you encounter such an error, please contact me at for discussion and correction. -- Jose Manuel Chief complaint: ischemic colitis 24 hour events: patient continues to improve, c.diff sent last night, but soft stool. Patient states she is about 5% better today, and feeling good about it. Eating currently without pain. Medications: Reviewed with no gastrointestinal related changes noted, still on low dose levofloxacin REVIEW OF SYSTEMS: Complete other review of systems negative except as noted in the HPI PHYSICAL EXAMINATION: CONSTITUTIONAL: Vital signs reviewed as documented above. In no acute distress. Nontoxic-appearing. EYES: Anicteric conjunctiva. Extra-ocular movements are intact and symmetric. EARS: Able to hear speech at conversational volume level, no external trauma/ masses. LUNGS: No increased work of breathing or accessory muscle use. GI/ABDOMEN: Obese abdomen, soft, diffusely tender to palpation-improved, no rebound tenderness, nondistended, no rigidity, soft. No palpable mass. No appreciable hepatosplenomegaly. SKIN: No rash on face, arms, or hands. No palpable lesions MUSCULOSKELETAL: sitting on side of bed eating. Muscle tone appears normal without any abnormal movements. PSYCH: Normal affect. Alert and oriented to person, place, and time. Laboratory: Personally reviewed Stable from labs 3 days ago, now with high Mg after supplementation given per protocol Radiology: Personally reviewed reports and images with no pertinent changes unless noted here: Assessments: #Ischemic colitis, common watershed area in the left colon. Repeat CT scan done without significant changes on 04/22/17. No high-grade stenosis noted on CT scan of abdominal vasculature. Patient with signficant symptomatic improvement overall, with persistent daily improvement. Symptoms of ischemic colitis, or colitis in general, can take weeks to months to completely resolve. #Pneumonia: seen incidentally on CT abdomen. Patient without chest pain, fevers. Likely exacerbated by patients increased abdominal pain with deep breathing and apparent atelectasis. Has been on SUBtherapeutic levofloxacin for 7 days. #Other specified counseling -- The patient was seen for greater than 30 minutes. The patient was counseled for greater than 50% of this time regarding differential diagnosis, likely diagnosis, diagnostic and therapeutic alternatives, risks/benefits/alternatives of medications and procedures, and plan of care generally. The patient expressed understanding and wishes to proceed. Recommendations: -Reasonable to continue antibiotics until clinical improvement due to severity, total course 7-14 days, transition to oral Cipro and Flagyl when tolerated -Follow-up C. difficile, low suspicion based on semi-formed stool -primary team to finalized pneumonia mgt, SUBTHERAPEUTIC levofloxacin, and flagyl not likely to treat. -Pain management per primary team, added scheduled Tylenol 1000mg Q8H to avoid increase in narcotics for now -Primary service to address hypovitaminosis D, hypocalcemia with appropriately high PTH, as well as high TSH, high free T4 in the setting of 11mm nodule in right isthmus. -Patient will require outpatient GI follow-up consult, and consideration of outpatient colonoscopy in 3-6 months. GI will sign off at this time. Please call with further questions or concerns Lashon Richard MD, MPH STAFF [employer] Current Visit: Yes Exam (Progress Note) - Constitutional Vitals: Period Temp Pulse Resp BP Sys/Kazt Pulse Ox Last 24 Hr 96.7 F-98.1 F 82-111 18-20 105-134/66-83 96-99 Results - Labs CBC & BMP: 04/24/17 15:04 04/24/17 15:04 Specialty Discharge - Follow Up or Referrals Follow up with: Zach Gonzales MD [Physician] - (make follow up May 09 or )
[2017-04-24] MEDS: SERTRALINE 25 MG TABLET PO SCH (21:24)
[2017-04-25] MEDS: ALBUTEROL/IPRATROPIUM 3 ML NEB RESP TX SCH ×4 (00:53→19:25)
[2017-04-25] MEDS: MORPHINE 2 MG/1 ML SYRINGE IV PRN ×6 (01:20→23:22)
[2017-04-25] MEDS: metroNIDAZOLE 500 MG TABLET PO SCH ×3 (05:27→21:58)
[2017-04-25] MEDS: ACETAMINOPHEN 500 MG TABLET PO SCH ×3 (05:27→21:57)
[2017-04-25] MEDS: SUCRALFATE 1 GM/10 ML UDCUP PO SCH ×4 (09:12→23:23)
[2017-04-25] MEDS: CHOLECALCIFEROL 400 UNIT TABLET PO SCH ×3 (09:12→21:56)
[2017-04-25] MEDS: CLORAZEPATE 7.5 MG TABLET PO SCH ×2 (09:12→21:56)
[2017-04-25] MEDS: levETIRAcetam 500 MG TABLET PO SCH ×2 (09:12→21:58)
[2017-04-25] MEDS: PANTOPRAZOLE 40 MG TABLET PO SCH ×2 (09:12→21:58)
[2017-04-25] MEDS: CALCITRIOL 0.25 MCG CAPSULE PO SCH (09:12)
[2017-04-25] MEDS: CALCIUM (CARBONATE) 500 MG TABLET PO SCH ×4 (09:12→21:57)
[2017-04-25] MEDS: MAGNESIUM CHLORIDE 64 MG TABLET PO SCH ×3 (09:12→21:57)
[2017-04-25] MEDS: LEVOFLOXACIN INJ 250 MG in PREMIX 1 EACH IV SCH (12:18)
--- NOTE | 2017-04-25 16:36 | XRay Report ---
Portable chest April 25, 2017 at 1526 hours Indication: Shortness of breath, cough, pneumonia? Comparison: Not available Findings: Cardiomediastinal contours are normal. Lungs are clear bilaterally. No acute osseous abnormalities. Visualized upper abdomen demonstrates no acute pathology. Impression: Normal chest PROCEDURE INTERPRETED AT [facility] DEPARTMENT OF RADIOLOGY Final Report Signed by: Jimy Stafford
--- NOTE | 2017-04-25 16:58 | Hospitalist Progress Note ---
Hospitalist: Subjective Interval history: 52-year-old female with abdominal pain and ischemic colitis. She still has abdominal pain. Exam - Constitutional Vitals: Period Temp Pulse Resp BP Sys/Katz Pulse Ox Last 24 Hr 97.3 F-98.9 F 87-109 18-20 108-129/69-87 94-99 Exam: General: No Acute Distress HEENT: Normocephalic, atraumatic, Extra ocular movements intact Neck: Supple, No JVD Chest: Clear to auscultation B/L CV: S1 + S2 audible without murmur, gallop or rub Abd: soft, abdominal tenderness +, BS + Ext: No edema Skin: No purpura, bruising or rash Rheumatologic: No Joint deformities Neurologic: Strength 5/5 all extremities, no gross sensory deficits Results - Labs CBC & BMP: 04/24/17 15:04 04/24/17 15:04 - Impressions Assessment and Plan Lower GI bleed/Abd Pain/Ischemic colitis Status: Acute Assessment and plan: She has no further GI bleed,continue liquid diet and Flagyl and Levaquin. CT scan of the abdomen and pelvis showed severe colitis,follow-up pending pathology reports. Continue IV morphine as needed 1 mg every 3 hourly. 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 qd. She is also on cholecalciferol 400 units p.o. 3 times daily Current Visit: Yes Hypophosphatemia Status: Acute Assessment and plan: I think this is secondary to her decreased p.o. intake from her acute illness as well as her elevated PTH level that is resulting from her hypocalcemia. Current Visit: Yes Hypoalbuminemia/moderate protein calorie malnutrition Status: Acute Current Visit: Yes Fibromyalgia Status: Acute Current Visit: Yes Hypokalemia Status: Acute Current Visit: Yes This has improved with scheduled potassium Hypomagnesemia Status: Acute Assessment and plan: Cont Slow-Mag 64 mg PO TID Current Visit: Yes Chronic obstructive pulmonary disease Status: Chronic Current Visit: Yes Peripheral vascular disease Status: Chronic Current Visit: Yes Acute renal failure Status: Resolved Assessment and plan: Resolved Current Visit: Yes Thyroid nodule Status: Chronic Assessment and plan: Indeterminant 11 mm solid nodule in the right isthmus. She will need to follow up with her primary care physician as an outpatient for this problem Current Visit: Yes Quality Measures - VTE Contraindication to Pharmacological VTE Prophylaxis: Active Bleeding Specialty Discharge - Follow Up or Referrals Follow up with: Zach Gonzales MD [Physician] - (make follow up May 09 or )
[2017-04-25] MEDS: SERTRALINE 25 MG TABLET PO SCH (21:57)
[2017-04-26] MEDS: ALBUTEROL/IPRATROPIUM 3 ML NEB RESP TX SCH ×4 (01:55→19:17)
[2017-04-26] MEDS: MORPHINE 2 MG/1 ML SYRINGE IV PRN ×6 (04:06→21:15)
[2017-04-26] MEDS: SUCRALFATE 1 GM/10 ML UDCUP PO SCH ×4 (07:14→21:14)
[2017-04-26] MEDS: metroNIDAZOLE 500 MG TABLET PO SCH ×3 (07:15→21:15)
[2017-04-26] MEDS: ACETAMINOPHEN 500 MG TABLET PO SCH ×3 (07:15→22:39)
[2017-04-26] MEDS: CALCITRIOL 0.25 MCG CAPSULE PO SCH (08:47)
[2017-04-26] MEDS: CLORAZEPATE 7.5 MG TABLET PO SCH ×2 (08:47→21:14)
[2017-04-26] MEDS: levETIRAcetam 500 MG TABLET PO SCH ×2 (08:47→21:14)
[2017-04-26] MEDS: PANTOPRAZOLE 40 MG TABLET PO SCH ×2 (08:47→21:14)
[2017-04-26] MEDS: CHOLECALCIFEROL 400 UNIT TABLET PO SCH ×3 (08:47→21:14)
[2017-04-26] MEDS: MAGNESIUM CHLORIDE 64 MG TABLET PO SCH ×2 (08:47→14:04)
[2017-04-26] MEDS: CALCIUM (CARBONATE) 500 MG TABLET PO SCH ×3 (08:48→21:15)
--- NOTE | 2017-04-26 11:12 | Nephrology Progress Note ---
Nephrology - PN: Subj Interval history: Patient asking about going home. She continues to have soft stools and some abdominal discomfort. Review of systems pulmonary she denies shortness of breath Physical exam general the patient is in no acute distress Assessment/plan 1. Acute renal failure-this is resolved 2. Hypomagnesemia-this patient's magnesium level was 2.9 on her last check. I suspect she got some IV replacement of magnesium which contributed to this elevated level. I would hold off on IV replacement unless the magnesium falls below 1.0 otherwise I would continue Slow-Mag 65 mg twice daily. 3. Hypocalcemia-this is normalized, I am going to stop her calcitriol as hopefully her kidneys have recovered enough to where she is converting vitamin D2 to the active form of vitamin D. I will also decrease her calcium supplement to 3 times a day. 4. Hypokalemia this is normalized I am going to sign off her case please reconsult as needed thank you Exam (PN)-Nephrology - Vital Signs Vital signs: Period Temp Pulse Resp BP Sys/Katz Pulse Ox Last 24 Hr 95.6 F-98.3 F 72-109 12-20 108-143/70-93 94-100 - Lab 04/24/17 15:04 04/24/17 15:04 Most recent lab results ABG pH 7.418 (7.35-7.45) 04/16/17 03:15 ABG pCO2 51.3 MM HG (35-48) H 04/16/17 03:15 ABG pO2 111.5 MM HG (80-95) H 04/16/17 03:15 ABG HCO3 32.4 MMOL/L (20-26) H 04/16/17 03:15 ABG O2 Saturation 97.6 % (95-100) 04/16/17 03:15 Calcium 8.3 MG/DL (8.5-10.1) L 04/24/17 15:04 Phosphorus 2.8 MG/DL (2.5-4.9) 04/19/17 05:27 Magnesium 2.9 MG/DL (1.8-2.4) H 04/24/17 15:04 Assessment and Plan (1) Hypocalcemia Status: Acute Assessment and plan: This patient continues to have a low calcium after renal failure and severely decreased p.o. intake as well as diarrhea and vomiting. She has been getting some IV calcium gluconate as well as calcium carbonate by mouth. She has a low vitamin D level she also has a low albumin level making for a component of pseudo-hypocalcemia. I am going to increase her calcium carbonate replacement to 2000 mg 4 times a day given between meals and at bedtime. I will also start her on calcitriol the active form of vitamin D as with her recent renal injury she may not be converting the vitamin D to the active form. I will also check a albumin level tomorrow. Current Visit: Yes (2) Hypophosphatemia Status: Acute Assessment and plan: I think this is secondary to her decreased p.o. intake from her acute illness as well as her elevated PTH level that is resulting from her hypocalcemia. Current Visit: Yes (3) Hypoalbuminemia Status: Acute Current Visit: Yes (4) Fibromyalgia Status: Acute Current Visit: Yes (5) Hypokalemia Status: Acute Current Visit: Yes (6) Hypomagnesemia Status: Acute Assessment and plan: We will start her on some Slow-Mag Current Visit: Yes (7) Chronic obstructive pulmonary disease Status: Chronic Current Visit: Yes (8) Peripheral vascular disease Status: Chronic Current Visit: Yes (9) Acute renal failure Status: Resolved Assessment and plan: This seems to have resolved Current Visit: Yes Specialty Discharge - Follow Up or Referrals Follow up with: Zach Gonzales MD [Physician] - (make follow up May 09 or )
--- NOTE | 2017-04-26 18:13 | Hospitalist Progress Note ---
Hospitalist: Subjective Interval history: Patient has abdominal pain but continues to improve Exam - Constitutional Vitals: Period Temp Pulse Resp BP Sys/Katz Pulse Ox Last 24 Hr 95.6 F-98.0 F 72-109 12-20 112-143/70-93 94-100 Exam: General: No Acute Distress HEENT: Normocephalic, atraumatic, Extra ocular movements intact Neck: Supple, No JVD Chest: Clear to auscultation B/L CV: S1 + S2 audible without murmur, gallop or rub Abd: soft, abdominal tenderness +, BS + Ext: No edema Skin: No purpura, bruising or rash Rheumatologic: No Joint deformities Neurologic: Strength 5/5 all extremities, no gross sensory deficits Results - Labs CBC & BMP: 04/24/17 15:04 04/24/17 15:04 - Impressions Assessment and Plan Lower GI bleed/Abd Pain/Ischemic colitis Status: Acute Assessment and plan: She has no further GI bleed,continue liquid diet and Flagyl and Levaquin. CT scan of the abdomen and pelvis showed severe colitis,follow-up pending pathology reports. Continue IV morphine as needed 1 mg every 3 hourly. 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 qd. She is also on cholecalciferol 400 units p.o. 3 times daily Current Visit: Yes Hypophosphatemia Status: Acute Assessment and plan: I think this is secondary to her decreased p.o. intake from her acute illness as well as her elevated PTH level that is resulting from her hypocalcemia. Current Visit: Yes Hypoalbuminemia/moderate protein calorie malnutrition Status: Acute Current Visit: Yes Fibromyalgia Status: Acute Current Visit: Yes Hypokalemia Status: Acute Current Visit: Yes This has improved with scheduled potassium Hypomagnesemia Status: Acute Assessment and plan: Cont Slow-Mag 64 mg PO TID Current Visit: Yes Chronic obstructive pulmonary disease Status: Chronic Current Visit: Yes Peripheral vascular disease Status: Chronic Current Visit: Yes Acute renal failure Status: Resolved Assessment and plan: Resolved Current Visit: Yes Thyroid nodule Status: Chronic Assessment and plan: Indeterminant 11 mm solid nodule in the right isthmus. She will need to follow up with her primary care physician as an outpatient for this problem Current Visit: Yes Quality Measures - VTE Contraindication to Pharmacological VTE Prophylaxis: Active Bleeding Specialty Discharge - Follow Up or Referrals Follow up with: Zach Gonzales MD [Physician] - (make follow up May 09 or )
[2017-04-26] MEDS: SERTRALINE 25 MG TABLET PO SCH (21:14)
[2017-04-27] MEDS: ALBUTEROL/IPRATROPIUM 3 ML NEB RESP TX SCH ×3 (01:11→13:45)
[2017-04-27] MEDS: MORPHINE 2 MG/1 ML SYRINGE IV PRN ×3 (04:22→12:17)
[2017-04-27] MEDS: SUCRALFATE 1 GM/10 ML UDCUP PO SCH ×2 (06:35→12:17)
[2017-04-27] MEDS: ACETAMINOPHEN 500 MG TABLET PO SCH ×2 (06:35→14:32)
[2017-04-27] MEDS: metroNIDAZOLE 500 MG TABLET PO SCH ×2 (06:35→14:31)
[2017-04-27] MEDS: levETIRAcetam 500 MG TABLET PO SCH (09:10)
[2017-04-27] MEDS: CHOLECALCIFEROL 400 UNIT TABLET PO SCH ×2 (09:10→14:32)
[2017-04-27] MEDS: PANTOPRAZOLE 40 MG TABLET PO SCH (09:10)
[2017-04-27] MEDS: CLORAZEPATE 7.5 MG TABLET PO SCH (09:10)
[2017-04-27] MEDS: CALCIUM (CARBONATE) 500 MG TABLET PO SCH ×2 (12:17→14:32)
[2017-04-27] MEDS: LEVOFLOXACIN INJ 250 MG in PREMIX 1 EACH IV SCH (12:17)
[2017-04-27 12:31] VITALS: BP 123/79
[2017-04-27] MEDS ORDERED: ERGOCALCIFEROL 50,000 UNIT CAPSULE PO SCH (13:00)
--- NOTE | 2017-04-27 13:47 | Discharge Summary ---
Hospital Course - Hospital Course Hospital Course: 52 year old female with a history of hypertension, obstructive sleep apnea ( untreated), peripheral artery disease, CVA, and COPD that presented to the ER with lower GI bleed with rectal bleeding. In the ER, patient was found to have severe hypotension and she was also Hemoccult positive. Patient patient had anemia of acute GI blood loss and was given emergent packed red blood cells in the ER and was placed on 2 pressors, and subsequently admitted to ICU under hospitalist service. She also had acute renal failure requiring IV fluids. She had several comorbid conditions including peripheral vascular disease for which she was seeing Dr. Gonzales. For GI bleed she was better by GI and was found to have severe ischemic colitis. Nephrology was following for acute renal failure. She was stabilized hemodynamically and was taken off pressors, and she was transferred to the floor. She continued to have abdominal pain and GI repeated her CT abdomen which showed persistent ischemic colitis. She was continued on IV Levaquin and Flagyl. She was found to have severe hypovitaminosis D and severe secondary hyperparathyroidism due to vitamin D deficiency, she was on vitamin D replacement. Incidental thyroid nodule on the thyroid ultrasound for which she will follow up with Dr. Tracy her primary care physician on an outpatient basis. She is aware of this problem. She still has some abdominal pain which will takes a while to settle down, she is aware of this problem. She will go home on antibiotics and and [place]. She has reached maximal has a benefit and is being discharged home in improved and stable condition. Total discharge time was 46 minutes. - Time spent with patient Time with patient DS: Greater than 30 minutes Diagnosis - Discharge Diagnosis (1) Lower gastrointestinal hemorrhage Status: Resolved (2) Hypovolemic shock Status: Resolved (3) GI bleed Status: Resolved Specialty Discharge - Follow Up or Referrals Follow up with: Zach Gonzales MD [Physician] - (make follow up May 09 or ) Discharge Plan - Discharge Data Disposition: Disch To Home/Self Care Condition at Discharge: Stable Discharge Diet: advance to your usual diet Activity: resume usual activities as tolerated Hygiene: no restrictions Weight Bearing at Discharge: full weight bearing Contact your physician if you experience:: Nausea/Vomiting, pain uncontrolled by pain medications - Discharge Medications New Calcium (Carbonate) [Oscal 500] 1,000 mg PO TID #90 tablet Ciprofloxacin Liquid [Cipro Susp] 500 mg PO Q12HR #0 bottle Ciprofloxacin Tab [Cipro Tab] 500 mg PO BID #20 tablet HYDROcodone/ACETAMIN 5-325 [[place] 5-325] 1 tablet PO Q6H PRN #40 tablet PRN Reason: Abdominal Pain metroNIDAZOLE TAB [Flagyl Cap/Tab] 500 mg PO Q8H #30 tablet Pantoprazole Tab [Protonix Tab] 40 mg PO BID #60 tablet Sucralfate Liquid [Carafate Liquid] 1 gm PO ACHS #1 Ergocalciferol [Drisdol] 50,000 unit PO Q7D #7 capsule Continue Levomilnacipran HCl [Fetzima] 40 mg PO QAM Furosemide Tab [Lasix Tab] 20 mg PO QAM Clorazepate [Tranxene] 3.75 mg PO BID traMADol TAB [Ultram] 50 mg PO BID PRN PRN Reason: Pain Pitavastatin Calcium [Livalo] 4 mg PO QPM levETIRAcetam [Levetiracetam] 500 mg PO BID Tiotropium Inhalation [Spiriva Handihaler] 18 mcg INH QAM Sertraline HCl 25 mg PO QAM Discontinued Lisinopril 40 mg PO QAM Aspirin 325 mg PO QAM Metoprolol Tartrate Tab [Lopressor Tab] 50 mg PO BID Cilostazol 100 mg PO BID - Follow Up or Referral Follow Up: Zach Gonzales MD [Physician] - (make follow up May 09 or ) Alton Tracy MD [Primary Care Provider] - 2 Weeks - Forms/Instructions Exam - Constitutional Vitals: Period Temp Pulse Resp BP Sys/Katz Pulse Ox Last 24 Hr 97.1 F-98.4 F 80-100 14-20 107-123/70-79 95-99 Exam: General: [No Acute Distress] HEENT: [Normocephalic, atraumatic, Extra ocular movements intact] Neck: [Supple, No JVD] Chest: [Clear to auscultation B/L] CV: [S1 + S2 audible without murmur, gallop or rub] Abd: [soft, mild abdominal tenderness, Non-distended, BS +] Ext: [No edema] Skin: [No purpura, bruising or rash] Rheumatologic: [No Joint deformities] Neurologic: [Strength 5/5 all extremities, no gross sensory deficits] Discharge Results Procedures and tests throughout hospitalization: Pending Orders 04/12/17 19:52 Red Blood Cells Leuko Red Stat Type and Screen Stat DS: Provider Date of admission: 04/12/17 20:43 Primary care physician: Alton Tracy MD Attending physician on admission: Wally Alejo MD Consults: 04/12/17 21:55 Consult to Physician [CONS] Routine Comment: Gi Bleed Consulting Provider: Ulysses Andrade Consulting Provider Notified: Yes When should Consulting Provider be notified: Now Person Notified: [email or web address] Date Notified: 04/13/17 Time Notified: 10:51 Consult Notification Comment: will let him know 04/12/17 21:56 Consult to Physician [CONS] Routine Comment: Renal failure Consulting Provider: Lucas Parks Consulting Provider Notified: Yes When should Consulting Provider be notified: Now Person Notified: BEKA Date Notified: 04/13/17 Time Notified: 10:32 Consult Notification Comment: 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 04/13/17 09:34 Consult to Pharmacy [CONS] Routine Reason for Pharmacy Consult: Dose/Manage Antibiotics Comment: please adjust antibiotic doses for renal disease 04/13/17 10:44 Consult to Physician [CONS] Routine Comment: Consulting Provider: Zach Gonzales Consulting Provider Notified: Yes When should Consulting Provider be notified: Now Person Notified: DR. GONZALES Date Notified: 04/13/17 Time Notified: 10:55 04/15/17 08:55 Consult to Physical Therapy [CONS] Routine Reason for Physical Therapy: Evaluate and Treat Start Therapy: Today 04/16/17 04:21 Consult to Case Mgmt/Social Srvs [CONS] Routine Reason for Case Mgmt/Social Srvs: Equipment Consult Comment: Needs help with purchasing C-pap machine for home use. 04/18/17 10:12 Consult to Physician [CONS] Routine Comment: low ca, BLE edema Consulting Provider: Remy Owens Person Notified: Gisele Date Notified: 04/18/17 Time Notified: 10:13 Discharging clinician: Katerin Mcrae MD
[2017-04-27] MEDS ORDERED: CIPROFLOXACIN 500 MG TABLET PO SCH (21:00)
== END 2017-04-27 15:35 | disposition home or self-care (01) | DRG 393 ==
LOC: N.ED 18:10 → N.EDINP 20:43 → SUATTDRO 20:43 → N.CC 21:18 → N.5E 04-17 10:19
PROVIDERS: ADMIT Family Medicine; ATTEND Hospitalist
PROC: COLONBX (2017-04-20 12:05)